=== PATIENT | male | born 1945 | race Caucasian/White ===

== ENCOUNTER 2019-11-30 07:32 | Outpatient (REF) | payer MEDICARE, SELFPAY ==
[2019-11-30 11:04] LABS: Cholesterol 168 mg/dL; HDL Cholesterol 36 mg/dL; LDL Cholesterol Calculated 99 mg/dl; Triglycerides 168 mg/dL
== END 2019-11-30 07:33 | disposition home or self-care (01) ==
LOC: HO.10HDL 07:32
PROVIDERS: PCP Internal Medicine; Visit Provider Internal Medicine
DX: I10 Essential (primary) hypertension (principal)
CPT/HCPCS: 36415; 80061

== ENCOUNTER 2020-03-17 07:37 | Outpatient (REF) | payer MEDICARE, SELFPAY ==
[2020-03-17 10:40] LABS: Anion Gap 14 (12-20); Blood Urea Nitrogen 20 mg/dL (9-16); Carbon Dioxide 23 mmol/L (22-29); Chloride 108 mmol/L (96-108); Cholesterol 181 mg/dL; Estimated Glomerular Filt Rate > 60; Glucose Fasting 106 mg/dL (60-99); HDL Cholesterol 52 mg/dL; LDL Cholesterol Calculated 100 mg/dl; Potassium 4.6 mmol/l (3.3-5.1); Sodium 140 mmol/L (135-145); Triglycerides 146 mg/dL
== END 2020-03-17 07:38 | disposition home or self-care (01) ==
LOC: HO.10HDL 07:37
PROVIDERS: Absent Provider Internal Medicine Hypertension Specialist; Visit Provider Internal Medicine
DX: E78.5 Hyperlipidemia, unspecified (principal); C64.9 Malignant neoplasm of unspecified kidney, except renal pelvis; Z90.5 Acquired absence of kidney; I10 Essential (primary) hypertension
CPT/HCPCS: 36415; 80048; 80061

== ENCOUNTER 2020-04-03 06:33 | Outpatient (REF) | payer MEDICARE, SELFPAY | END 2020-04-03 06:34 | disposition home or self-care (01) | LOC: HO.LAB 06:33 | PROVIDERS: PCP Internal Medicine; Visit Provider Internal Medicine | DX: Z20.822 Contact with and (suspected) exposure to COVID-19 (principal) | CPT/HCPCS: 36415; C9803; U0003 ==

== ENCOUNTER → 2020-04-03 10:30 | Outpatient (REF) | payer MEDICARE, SELFPAY ==
--- NOTE | 2020-04-03 10:30 | CA_ITS ---
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 The visually estimated ejection fraction is between 60-65%. - No obvious valvular pathology seen on this study. Findings Procedure Information Contrast agent, definity, is being given per protocol without apparent complications. Left Ventricle Normal left ventricular cavity size. There is mildly increased left ventricular wall thickness. The left ventricular systolic function is normal. The visually estimated ejection fraction is between 60-65%. There is no evidence of regional wall motion abnormalities. E/E prime ratio is between 8 and 15 consistent with indeterminate filling pressures. Evidence suggests grade I (mild) diastolic dysfunction. Right Ventricle Normal right ventricular cavity size and systolic function. Atria Both atria are normal in size. Aortic Valve There is a normal trileaflet aortic valve. There is no aortic valve stenosis. There is trace (trivial) aortic valve regurgitation. Mitral Valve The mitral valve appears normal. There is no mitral valve regurgitation. There is no mitral valve stenosis. Pulmonic Valve The pulmonic valve was not well visualized. Tricuspid Valve Normal tricuspid valve structure. There is trace tricuspid valve regurgitation. The pulmonary artery systolic pressure is normal. Great Vessels The asc aorta is normal in size. Venous The inferior vena cava is normal in size and collapses greater than 50% with inspiration. Pericardium/Pleural There is no evidence of pericardial effusion. Prior Study Comparison No significant change compared to prior study dated: 02/11/2016. Recommendations, Care & Conclusions No obvious valvular pathology seen on this study. Measurements M-Mode Liner Measurements Normals - Women/Men AOV Cusps: 2.40 1.5-2.6 cm/m2 2D Linear Measurements IVSd: 1.15 0.6-0.9/0.6-1.0 cm LVIDd: 4.54 3.9-5.3/4.2-5.9 cm LVIDd Index: 1.98 2.4-3.2/2.2-3.1 cm/m2 LVIDs: 3.06 2.0-3.6 cm LVPWd: 1.15 0.7-1.1 cm Ao Root: 3.60 2.1-3.5 cm LA Diam: 4.60 2.7-3.8/3.0-4.0 cm LAIDs Index: 2.01 1.5-2.3 cm/m2 LV Mass: 235.49 67-162/88-224 g LV Mass Index: 102.84 43-95/49-115 g/m2 LVOT Diam: 2.40 3.0+(-)1.3 cm Mitral Valve MV Pk E: 0.88 MV PK A: 0.73 MV Decel Time: 222.00 E/A: 1.20 E'Lateral: 6.42 E'Medial: 6.20 E/E' Med: 14.20 E/E' Lat: 13.80 PHT: 65.00 MVA PHT: 3.38 Decel Faulkner: 3.98 Aortic Valve AoV Pk Tom: 1.32 AoV Pk Grad: 7.00 LVOT LVOT Pk Tom: 1.03 LVOT Mn Tom: 0.69 LVOT VTI: 0.25 LVOT Pk Grad: 4.00 LVOT Mn Grad: 2.00 LVOT Diam: 2.40 LVOT Area: 4.52 Diastolic Function MV Pk E: 0.88 MV Pk A: 0.73 E/A: 1.20 E'Medial: 6.20 E/E' Med: 14.20 E' Laterial: 6.42 E/E' Lat: 13.80 Tricuspid Valve TR Pk Tom: 2.78 TR Pk Grad: 31.00 RA Press: 3.00 RVSP: 34.00 Great Vessels Aorta Ao Root-2D: 3.60 2.0-3.7 cm Ao Asc: 3.40 2.1-3.4 cm Pulmonary Valve PV Pk Tom: 1.15 Peak PV Grad: 5.00 Updated in Other Vendor System with Status of Final Manuel Henderson MD electronically signed on 04/05/2020 1:24:45 PM with status of Final
== END ==
LOC: HO.CARD 10:30
PROVIDERS: PCP Internal Medicine; Visit Provider Internal Medicine
DX: I25.10 Atherosclerotic heart disease of native coronary artery without angina pectoris (principal); Z95.1 Presence of aortocoronary bypass graft; Z20.822 Contact with and (suspected) exposure to COVID-19
CPT/HCPCS: 36415; 93306; C9803; Q9957; U0003

== ENCOUNTER → 2020-05-05 07:50 | Outpatient (BNVA) | payer MEDICARE, SELFPAY | PROVIDERS: PCP Internal Medicine; Visit Provider Internal Medicine | DX: I25.10 Atherosclerotic heart disease of native coronary artery without angina pectoris (principal); I10 Essential (primary) hypertension; Z95.1 Presence of aortocoronary bypass graft | CPT/HCPCS: 93005; 99212 ==

== ENCOUNTER 2020-09-30 07:36 | Outpatient (REF) | payer MEDICARE, SELFPAY ==
[2020-09-30 10:19] LABS: MANUAL DIFF FLAG NO
[2020-09-30 10:43] LABS: Basophils Percent Auto 0.5 % (0-2); Eosinophils Absolute Auto 0.2 X10*3/uL (0.0-0.4); Eosinophils Percent Auto 2.3 % (0-4); Hematocrit 45.6 % (42-52); Hemoglobin 15.2 g/dl (14.0-18.0); Imm Gran Abs Auto 0.01 X10*3/uL (0.00-0.03); Imm Gran Pct Auto 0.2 % (0.0-0.4); Lymphocytes Absolute Auto 1.9 X10*3/uL (1.2-4.9); Lymphocytes Percent Auto 29.8 % (20-40); Mean Corpuscular HGB Conc 33.3 g/dl (31.0-36.0); Mean Corpuscular Volume 89.9 fL (80-98); Mean Platelet Volume 10.7 fL (9.4-12.4); Monocytes Absolute Auto 0.5 X10*3/uL (0.1-1.2); Monocytes Percent Auto 7.5 % (2-11); Neutrophils Absolute Auto 3.8 X10*3/uL (2.0-8.3); Neutrophils Percent Auto 59.7 % (45-73); Platelet Count 240 X10*3/uL (160-400); Red Blood Count 5.07 X10*6/uL (4.60-5.80); Red Cell Distribution Width 11.9 % (11.0-16.0); White Blood Count 6.4 X10*3/uL (4.8-10.8)
[2020-09-30 10:45] LABS: Albumin Level 4.8 g/dL (3.5-5.0); Anion Gap 15 (12-20); Blood Urea Nitrogen 17 mg/dL (9-16); Calcium 9.4 mg/dL (8.4-10.2); Carbon Dioxide 22 mmol/L (22-29); Chloride 109 mmol/L (96-108); Estimated Glomerular Filt Rate > 60; Magnesium 2.1 mg/dL (1.6-2.6); Phosphorus 3.3 mg/dL (2.7-4.5); Potassium 4.8 mmol/L (3.3-5.1); Sodium 141 mmol/L (135-145)
[2020-09-30 11:15] LABS: Creatinine Urine 135.97 mg/dL; Total Protein Urine Random 27 mg/dL (<12)
[2020-10-03 13:31] LABS: Calcium (PTHI) 9.6 mg/dL (8.6-10.3); PTHI 89 pg/mL (14-64)
== END 2020-09-30 07:37 | disposition home or self-care (01) ==
LOC: HO.10HDL 07:36
PROVIDERS: Visit Provider Internal Medicine Hypertension Specialist
DX: N18.30 Chronic kidney disease, stage 3 unspecified (principal)
CPT/HCPCS: 36415; 80051; 82040; 82310; 82565; 83735; 83970; 84100; 84156; 84520; 85025

== ENCOUNTER 2020-10-04 11:37 | Emergency (ER) | payer MEDICARE, SELFPAY ==
[2020-10-04 11:47] VITALS: BP 141/70; PULSE 97; RESP 16; TEMP 36.8; O2SAT 98; BMI 30.7
--- NOTE | 2020-10-04 12:51 | ED.SKABFB ---
HPI - Skin/Abscess/Foreign Bdy General Chief complaint: Skin/Abscess/Foreign Body Stated complaint: Abcess Time Seen by Provider: 10/04/20 12:25 Source: patient Mode of arrival: ambulatory Limitations: no limitations History of Present Illness HPI narrative: 74 y/o male presenting with redness around newly diagnosed warts on his left buttock. He reports recently having a prostate exam and was noted to have a wart lesion on his left buttock. He was told to come to the hospital if it got worse or red. He denies any pain to the area and has been evaluating it with a mirror. He noticed today that there is redness spreading a few inches surrounding the wart. It is not tender. He has no fever, chills. No difficulty passing his bowels. No rectal involvement. He is not diabetic. MD complaint: rash Onset (ago): day(s) Location: buttocks Severity: mild Exacerbating factors: none Associated symptoms: denies other symptoms Treatments prior to arrival: none Related Data Home Medications Medication Instructions Recorded Confirmed finasteride 5 mg tablet 5 mg PO DAILY 12/05/19 08/26/20 nifedipine 60 mg tablet,extended 60 mg PO DAILY 12/05/19 08/26/20 release triamcinolone acetonide 0.1 % applic TOPICAL 12/05/19 08/26/20 topical cream aspirin 81 mg tablet,delayed 81 mg PO DAILY 05/05/20 08/26/20 release tamsulosin 0.4 mg capsule 0.4 mg PO DAILY 08/26/20 08/26/20 Previous Rx's Medication Instructions Recorded rosuvastatin 40 mg tablet (Crestor) 40 mg PO DAILY #90 tab 05/05/20 metoprolol tartrate 50 mg tablet 50 mg PO BID #180 tab 08/11/20 furosemide 20 mg tablet 10 mg PO QAM #30 tab 08/26/20 cephalexin 500 mg capsule 500 mg PO Q6H 7 Days #28 cap 10/04/20 Allergies Allergy/AdvReac Type Severity Reaction Status Date / Time atorvastatin [From LIPITOR] Allergy Intermediate RASH Verified 08/26/20 08:48 Review of Systems Constitutional: Constitutional: Denies body ache(s), Denies chills and Denies fever(s) Cardiovascular: Cardiovascular: Denies chest pain and Denies dyspnea Respiratory: Respiratory: Denies dyspnea Gastrointestinal: Gastrointestinal: Denies abdominal pain, Denies constipation, Denies diarrhea, Denies nausea and Denies vomiting Genitourinary: Genitourinary: Denies scrotal swelling, Denies testicular mass and Denies testicular pain Musculoskeletal: Musculoskeletal: Denies back pain and Denies myalgias Integumentary/Breasts: Skin/Breast: Reports erythema Psychiatric: Psychiatric: Reports anxiety Hematologic/Lymphatic: Hematologic/Lymphatic: Denies easy bleeding and Denies easy bruising Allergic/Immunologic: Allergic/Immunologic: Denies urticaria PMFSH Past Medical History Attestation statement: The following information was validated with the patient. Medical History Atherosclerotic cardiovascular disease Essential hypertension History of basal cell carcinoma of skin Surgical History History of bilateral carpal tunnel release History of coronary artery bypass graft History of left nephrectomy History of right inguinal hernia repair Family History Family History (Updated 08/26/20 @ 08:50 by GALO Pretty) Father No problems noted. Mother No problems noted. Social History Social History Housing: House Alcohol intake: current Patient Tobacco Use Status: Never used Tobacco Second Hand Smoke Exposure: No Advance Directives: Yes Advance Directives Information Provided: No Advance Directives on File: No service: No Current occupational status: retired Physical Exam Vital Signs: Vital Signs: Last Vital Signs Temp 98.2 F 10/04/20 11:47 Pulse 97 10/04/20 11:47 Resp 16 10/04/20 11:47 BP 141/70 H 10/04/20 11:47 Pulse Ox 98 10/04/20 11:47 Body Mass Index 30.7 Const: General: cooperative, healthy appearing and comfortable Nutritional Appearance: average body habitus Limitations: no limitations HENMT: Head: Yes normal to inspection Ears: hearing grossly normal bilaterally General nose exam: Normal external nose present Face and sinus: Yes normal facial exam Mouth: Normal oral and palatal mucosa present Eyes: General: appearance normal, both eyes and all related structures Neck: Neck: Yes normal visual inspection Chest: Chest palpation & inspection: normal inspection of the chest Resp: Effort & Inspection: normal respiratory effort and able to speak in complete sentences GI: Inspection: Yes normal to inspection Palpation (GI): Soft to palpation and nontender Rectal Exam - Male: Yes visual inspection normal Skin: General skin exam: erythema (left lower buttocks, 5 cm surrounding small wart like lesion, nontender) Course Course Course Narrative: 74 y/o male presenting with erythema surrounding wart like lesion on his buttocks. No tenderness or fluctuance to suggest abscess. Not surrounding rectum or anus. Clinical presentation is consistent with cellulitiis. No systemic signs of infection. No fevers.Stable for discharge home with trial of PO antibiotics and follow up with his PCP this week. Patient agrees with plan. Discharge Plan Discharge Clinical Impression: Cellulitis Qualifiers: Site of cellulitis: buttock Qualified Code(s): L03.317 - Cellulitis of buttock Patient Disposition: Home, Self-Care Instructions: Cellulitis (ED) Additional Instructions: Take the prescribed antibiotic as directed. Use warm compresses to the area. If you have worsening redness, pain or develop fevers come back to the ER for further evaluation. Follow up with your doctor early next week. Prescriptions: New cephalexin 500 mg capsule 500 mg PO Q6H 7 Days Qty: 28 RF: 0 No Action metoprolol tartrate 50 mg tablet 50 mg PO BID Qty: 180 RF: 8 finasteride 5 mg tablet 5 mg PO DAILY RF: 0 nifedipine 60 mg tablet extended release 60 mg PO DAILY RF: 0 triamcinolone acetonide 0.1 % cream topical RF: 0 tamsulosin 0.4 mg capsule 0.4 mg PO DAILY RF: 0 furosemide 20 mg tablet 10 mg PO QAM Qty: 30 RF: 8 aspirin 81 mg tablet,delayed release (DR/EC) 81 mg PO DAILY RF: 0 rosuvastatin [Crestor] 40 mg tablet 40 mg PO DAILY Qty: 90 RF: 4 Interventions: ED Discharge Assessment Last Done: 10/04/20 12:58 Discharge Date/Time: 10/04/20 12:58
== END 2020-10-04 12:58 | disposition home or self-care (01) ==
PROVIDERS: Emergency Provider Emergency Medicine Emergency Medical Services; PCP Internal Medicine
DX: L03.317 Cellulitis of buttock (principal); I10 Essential (primary) hypertension; Z79.899 Other long term (current) drug therapy
CPT/HCPCS: 99283

== ENCOUNTER 2021-06-01 07:33 | Outpatient (REF) | payer MEDICARE, SELFPAY ==
[2021-06-01 10:43] LABS: MANUAL DIFF FLAG NO
[2021-06-01 10:45] LABS: Basophils Absolute Auto 0.1 X10*3/uL (0.0-0.2); Basophils Percent Auto 0.8 % (0-2); Eosinophils Absolute Auto 0.2 X10*3/uL (0.0-0.4); Hematocrit 43.5 % (42.0-52.0); Hemoglobin 14.6 g/dl (14.0-18.0); Imm Gran Abs Auto 0.01 X10*3/uL (0.00-0.03); Imm Gran Pct Auto 0.1 % (0.0-0.4); Lymphocytes Percent Auto 26.9 % (20-40); Mean Corpuscular HGB Conc 33.6 g/dl (31.0-36.0); Mean Corpuscular Hemoglobin 30.9 pg (27.0-33.0); Mean Corpuscular Volume 92.2 fL (80.0-98.0); Monocytes Absolute Auto 0.5 X10*3/uL (0.1-1.2); Monocytes Percent Auto 6.3 % (2-11); Neutrophils Absolute Auto 4.6 x10*3/uL (2.0-8.3); Neutrophils Percent Auto 62.9 % (45-73); Platelet Count 237 X10*3/uL (160-400); Red Blood Count 4.72 X10*6/uL (4.60-5.80); Red Cell Distribution Width 12.4 % (11.0-16.0); White Blood Count 7.3 X10*3/uL (4.8-10.8)
[2021-06-01 11:06] LABS: Alanine Aminotransferase 26 U/L (0-40); Albumin Level 4.4 g/dL (3.5-5.0); Alkaline Phosphatase 99 U/L (39-117); Anion Gap 12 (12-20); Aspartate Amino Transferase 23 U/L (5-37); Bilirubin Direct 0.2 mg/dL (0.0-0.5); Bilirubin Total 0.5 mg/dL (0.0-1.0); Blood Urea Nitrogen 20 mg/dL (9-16); Calcium 9.4 mg/dL (8.4-10.2); Carbon Dioxide 24 mmol/L (22-29); Chloride 109 mmol/L (96-108); Cholesterol 138 mg/dL; Estimated Glomerular Filt Rate > 60; Glucose Fasting 105 mg/dL (60-99); HDL Cholesterol 53 mg/dL; LDL Cholesterol Calculated 74 mg/dl; Potassium 4.7 mmol/L (3.3-5.1); Sodium 140 mmol/L (135-145); Triglycerides 58 mg/dL
[2021-06-01 11:18] LABS: Prostate Specific Antigen Scr 2.03 ng/mL (<0.05-4.0); Thyroid Stimulating Hormone 3.11 uIU/mL (0.32-4.0)
== END 2021-06-01 07:34 | disposition home or self-care (01) ==
LOC: HO.10HDL 07:33
PROVIDERS: Internal Medicine; Visit Provider Internal Medicine Hypertension Specialist
DX: Z00.00 Encounter for general adult medical examination without abnormal findings (principal); Z13.0 Encounter for screening for diseases of the blood and blood-forming organs and certain disorders involving the immune mechanism; Z12.5 Encounter for screening for malignant neoplasm of prostate; I25.10 Atherosclerotic heart disease of native coronary artery without angina pectoris; I10 Essential (primary) hypertension
CPT/HCPCS: 36415; 80053; 80061; 80076; 82248; 84153; 84443; 85025

== ENCOUNTER → 2021-06-03 08:24 | Outpatient (BNVA) | payer MEDICARE, SELFPAY | PROVIDERS: PCP Internal Medicine; Referring Provider Internal Medicine; Visit Provider Internal Medicine | DX: I25.10 Atherosclerotic heart disease of native coronary artery without angina pectoris (principal); I10 Essential (primary) hypertension; E78.5 Hyperlipidemia, unspecified; Z95.1 Presence of aortocoronary bypass graft | CPT/HCPCS: 93005; 99212 ==

== ENCOUNTER 2022-03-13 07:49 | Emergency (ER) | payer MEDICARE, SELFPAY ==
[2022-03-13 07:51] VITALS: BP 172/78; PULSE 85; RESP 16; TEMP 35.6; O2SAT 96; BMI 30.6
--- NOTE | 2022-03-13 08:05 | ED.SKABFB ---
HPI - Skin/Abscess/Foreign Bdy General Chief complaint: Skin/Abscess/Foreign Body Stated complaint: rash Time Seen by Provider: 03/13/22 07:56 Source: patient Mode of arrival: ambulatory Limitations: no limitations History of Present Illness HPI narrative: Ten 6-year-old male with history of HTN, HLD, obesity, CAD status post CABG who presents to the ER for evaluation of 2 or 3 days of a painful, red, tender bump on his right buttock. He reports history of a similar presentation that was treated with warm compresses several years ago. He states that drained on his own last time. He has been using warm compresses to the area for the last couple of days want to get evaluated in the emergency department today. He denies any fever or chills at home. He is a year. He denies any close proximity to the rectum. He is not diabetic MD complaint: abscess/boil Onset (ago): day(s) Tetanus up to date: yes Location: buttocks Severity: moderate Severity scale (1-10): 5 Quality: aching Pain Consistency: intermittent Relieving factors: other (warm compress) Exacerbating factors: palpation Context: none Associated symptoms: denies other symptoms Treatments prior to arrival: attempted to drain pus at home Related Data Home Medications Medication Instructions Recorded Confirmed finasteride 5 mg tablet 5 mg PO DAILY 12/05/19 01/07/22 nifedipine 60 mg tablet,extended 60 mg PO DAILY 12/05/19 01/07/22 release aspirin 81 mg tablet,delayed 81 mg PO DAILY 05/05/20 01/07/22 release Previous Rx's Medication Instructions Recorded rosuvastatin 40 mg tablet (Crestor) 40 mg PO DAILY #90 tabs 06/29/21 metoprolol tartrate 50 mg tablet 50 mg PO BID #180 tabs 09/24/21 cephalexin 500 mg capsule 500 mg PO Q6H 7 days #28 caps 03/13/22 Allergies Allergy/AdvReac Type Severity Reaction Status Date / Time atorvastatin [From LIPITOR] Allergy Intermediate RASH Verified 01/07/22 12:53 Review of Systems Review of Systems: Yes all other systems are reviewed and are negative PMFSH Past Medical History Medical History History of basal cell carcinoma of skin Surgical History History of bilateral carpal tunnel release History of coronary artery bypass graft History of left nephrectomy History of right inguinal hernia repair Family History Family History Father No problems noted. Mother No problems noted. Social History Social History (Updated 08/26/21 @ 08:38 by GALO Ayala) Housing: House Alcohol intake: current Alcohol intake frequency: 0-2 drinks per day Patient Tobacco Use Status: Never used Tobacco Smoked in Last 30 Days: No e-Cigarette/Vaping Use: Never Used Second Hand Smoke Exposure: No Use of substances other than those prescribed or required for medical reasons: No Advance Directives: No Advance Directives Information Provided: Yes service: No Current occupational status: retired Cognitive needs: No Hearing needs: No Vision needs: Yes Physical Exam Vital Signs: Vital Signs: Last Vital Signs Temp 96.0 F L 03/13/22 07:51 Pulse 85 03/13/22 07:51 Resp 16 03/13/22 07:51 BP 172/78 H 03/13/22 07:51 Pulse Ox 96 03/13/22 07:51 O2 Del Method 03/13/22 07:51 BMI result Body Mass Index 30.6 Appearance: Alert. Oriented X3. No acute distress. HEENT: normal inspection CVS: Normal heart rate and rhythm. Pulses normal. Respiratory: No respiratory distress. Skin: Skin warm and dry. Normal skin color. Normal skin turgor. Right inferior buttock with a small, 1 cm area of erythema, tenderness and induration. No central fluctuance. No drainage. No extension to the perirectal area. Extremities: normal inspection x4 Neuro: Oriented X 3. Grossly normal, nonfocal, normal speech and cognition. Steady gait Course Course Course Narrative: 76-year-old male presents to the ER for evaluation of a painful, tender, red lesion on his right buttock for the last couple of days. Exam is consistent with a small infected hair follicle, no area of fluctuance to perform incision and drainage today. Will continue warm compresses. Will prescribe antibiotics. Discussed return precautions. Stable for discharge home. Medical Decision Making Differential Diagnosis Differential Diagnoses: The differential diagnosis associated with the presentation includes Abscess, cellulitis, folliculitis, herpes, perirectal abscess External Record Review External record reviewed: Office record, Outpatient record and Prior outpatient labs Tests considered The following testing was considered but not selected: labs considered - not indicated. no signs of systemic infection Prescription Management I considered prescription management with: Antibiotic Prescribed Keflex Critical Care Time Critical Care Time Critical Care Time: No Discharge Plan Discharge Clinical Impression: Abscess of skin or subcutaneous tissue Patient Disposition: Home, Self-Care Instructions: Abscess (ED) Additional Instructions: Continue to use warm compresses to the area several times per day. Take prescribed antibiotics as directed. Follow-up with primary care doctor as needed. If you develop new or worsening symptoms call 911 or come back to the ER for further evaluation. Prescriptions: New cephalexin 500 mg capsule 500 mg PO Q6H 7 Days Qty: 28 0RF No Action rosuvastatin [Crestor] 40 mg tablet 40 mg PO DAILY Qty: 90 3RF metoprolol tartrate 50 mg tablet 50 mg PO BID Qty: 180 8RF finasteride 5 mg tablet 5 mg PO DAILY nifedipine 60 mg tablet extended release 60 mg PO DAILY aspirin 81 mg tablet,delayed release (DR/EC) 81 mg PO DAILY Referrals: Margarito Solitario MD [Primary Care Provider] -
== END 2022-03-13 08:19 | disposition home or self-care (01) ==
PROVIDERS: Emergency Provider Emergency Medicine; PCP Internal Medicine
DX: L02.31 Cutaneous abscess of buttock (principal); I10 Essential (primary) hypertension; E78.5 Hyperlipidemia, unspecified; Z95.1 Presence of aortocoronary bypass graft
CPT/HCPCS: 99283; 99284

== ENCOUNTER 2022-06-09 07:47 | Outpatient (REF) | payer MEDICARE, SELFPAY ==
[2022-06-09 10:56] LABS: Anion Gap 14 (12-20); Blood Urea Nitrogen 17 mg/dL (9-16); Calcium 9.1 mg/dL (8.4-10.2); Carbon Dioxide 22 mmol/L (22-29); Chloride 110 mmol/L (96-108); Estimated Glomerular Filt Rate > 60; Glucose Random 99 mg/dL (60-115); Potassium 4.6 mmol/L (3.3-5.1); Sodium 141 mmol/L (135-145)
[2022-06-09 11:22] LABS: Creatinine Urine 82.59 mg/dL; Protein/Creatinine Ratio, Ur 0.27 (<0.2); Total Protein Urine Random 22 mg/dL (<12)
== END 2022-06-09 07:48 | disposition home or self-care (01) ==
LOC: HO.10HDL 07:47
PROVIDERS: Visit Provider Internal Medicine Hypertension Specialist
DX: I10 Essential (primary) hypertension (principal)
CPT/HCPCS: 36415; 80048; 84156

== ENCOUNTER → 2022-08-03 08:12 | Outpatient (BNVA) | payer MEDICARE, SELFPAY | PROVIDERS: PCP Internal Medicine; Referring Provider Internal Medicine; Visit Provider Internal Medicine | DX: I25.10 Atherosclerotic heart disease of native coronary artery without angina pectoris (principal); I10 Essential (primary) hypertension; E78.5 Hyperlipidemia, unspecified; Z95.1 Presence of aortocoronary bypass graft | CPT/HCPCS: 93005; 99212 ==

== ENCOUNTER 2022-09-08 08:50 | Outpatient (AMB) | payer MEDICARE, SELFPAY ==
[2022-09-08 08:56] VITALS: BMI 31.2
--- NOTE | 2022-09-08 08:56 | MHC.OFFVIS ---
Intake Vital Signs 09/08/22 08:56 Height 6 ft Weight 230 lb BMI 31.2 Intake Visit Reasons: Umbilical hernia Intake Note: This patient presents for an assessment for an umbilical hernia. Patient c/o; bulge, umbilical hernia, denies problems with bowel movements. Letter Of Credit Document Examiner Required: No Accompanied by: Self / Same As Patient Allergies atorvastatin [From LIPITOR] Allergy (Intermediate, Verified 08/19/22 09:23) RASH Medication List - Last Reconciled 09/08/22 by René Holt MD aspirin 81 mg PO DAILY finasteride 5 mg PO DAILY metoprolol tartrate 50 mg PO BID multivit with min-folic acid 120 mcg (Centrum Adult 50 Plus Fresh-Fruity) 1 tab PO DAILY nifedipine ER 60 mg PO DAILY rosuvastatin (Crestor) 40 mg PO DAILY HPI Umbilical hernia HPI Details 76-year-old male referred for an umbilical hernia. He says that he has noticed this lump on his umbilicus for about a couple of months now. He thinks that this happened after he was changing tires on his car. He denies pain although he does still bit of discomfort. He denies GI complaints. He also says that he had an [place] about 13 years ago but has been told by his insurance attorney recently that he has been doing well. [facility] Medical History Atherosclerotic cardiovascular disease Essential hypertension History of basal cell carcinoma of skin Obesity Other and unspecified hyperlipidemia Surgical History History of bilateral carpal tunnel release History of coronary artery bypass graft History of left nephrectomy History of right inguinal hernia repair Family History Father No problems noted. Mother No problems noted. Social History Housing: House Alcohol intake: current Alcohol intake frequency: 0-2 drinks per day Patient Tobacco Use Status: Never used Tobacco e-Cigarette/Vaping Use: Never Used Second Hand Smoke Exposure: No service: No Current occupational status: retired Cognitive needs: No Hearing needs: No Vision needs: Yes Review of Systems Const Denies chills and Denies fever(s) Card Denies chest pain, Denies dyspnea and Denies dyspnea on exertion Resp Denies cough, Denies dyspnea and Denies dyspnea on exertion GI Denies hematochezia and Denies change in bowel habits Denies hematuria and Denies difficulty urinating Musc Denies back pain and Denies limited range of motion Neuro Denies focal weakness and Denies convulsions Psych Denies depression and Denies mood swings Physical Exam Vital Signs: BMI result Body Mass Index 31.2 Const General: comfortable and no acute distress Orientation/consciousness: patient oriented x3 Neck Neck: Yes no lymphadenopathy Resp Auscultation: clear to auscultation bilaterally Cardio Rhythm: regular rhythm GI Other: Umbilical hernia, reducible, more prominent with Valsalva, about 2.5 cm in diameter Palpation (GI): Soft to palpation, nontender and no guarding Neuro General: patient oriented x3 Assessment & Plan Assessment & Plan (1) Umbilical hernia: Code(s): K42.9 - Umbilical hernia without obstruction or gangrene Plan: He has an umbilical hernia as described above. I described to him the technique of repair with possible mesh. I reviewed the risks including but not limited to bleeding, infections, recurrence, bowel injury, postop pain, as well as the benefits and alternatives. He understands and wants to proceed. I also explained to him what to expect postoperatively. Coding Level of Care Code New Pt Level 3 (89153) Diagnoses Umbilical hernia K42.9
== END 2022-09-08 09:18 | disposition home or self-care (01) ==
PROVIDERS: PCP Internal Medicine; Referring Provider Internal Medicine; Visit Provider Surgery
DX: K42.9 Umbilical hernia without obstruction or gangrene (principal)
CPT/HCPCS: 99203

== ENCOUNTER → 2022-09-08 08:50 | Outpatient (BNVA) | payer MEDICARE, SELFPAY | PROVIDERS: PCP Internal Medicine; Referring Provider Internal Medicine; Visit Provider Surgery | DX: K42.9 Umbilical hernia without obstruction or gangrene (principal) | CPT/HCPCS: 99202 ==

== ENCOUNTER 2022-09-18 07:02 | Emergency (ER) | payer MEDICARE, SELFPAY ==
[2022-09-18 07:14] VITALS: BP 139/74; PULSE 75; RESP 16; TEMP 36.8; O2SAT 98; BMI 33.7
--- NOTE | 2022-09-18 08:57 | ED_ITS ---
HPI - General Adult General Chief complaint: General Medical Stated complaint: back pain Time Seen by Provider: 09/18/22 07:19 Source: patient Mode of arrival: ambulatory Limitations: no limitations History of Present Illness HPI narrative: Patient is a 76-year-old male with history of hypertension, hyperlipidemia, status post CABG presenting to the emergency department with complaint of right lower back pain for 2 days. Patient states he was bringing his dog to the vet and the dog was going to the bathroom on a leash. Patient began to walk away and the dog pulled back on the leash abruptly, causing right lower back pain. Patient has been using heat packs and icy Hot as well as ibuprofen but states he is still having brief episodes of sharp stabbing pain. He denies any radiation of the pain down his legs. Denies any saddle anesthesia or bowel or bladder incontinence. Denies any fevers. Denies any difficulty with ambulating. States pain is typically worse in the morning. He denies any recent falls or other trauma. Denies any dysuria, hematuria or other urinary symptoms. MD complaint: Right lower back pain Onset (ago): day(s) Location: back Radiation: non-radiation Severity: severe Quality: stabbing and sharp Pain Consistency: intermittent Relieving factors: rest Exacerbating factors: movement Associated symptoms: denies other symptoms Treatments prior to arrival: NSAID and heat therapy Related Data Home Medications Medication Instructions Recorded Confirmed finasteride 5 mg tablet 5 mg PO DAILY 12/05/19 08/03/22 nifedipine 60 mg tablet,extended 60 mg PO DAILY 12/05/19 08/03/22 release aspirin 81 mg tablet,delayed 81 mg PO DAILY 05/05/20 08/03/22 release multivitamin with minerals-folic 1 tab PO DAILY 09/08/22 acid 120 mcg chewable tablet (Centrum Adult 50 Plus Fresh-Fruity) Previous Rx's Medication Instructions Recorded metoprolol tartrate 50 mg tablet 50 mg PO BID #180 tabs 09/24/21 rosuvastatin 40 mg tablet (Crestor) 40 mg PO DAILY #90 tabs 06/21/22 cyclobenzaprine 5 mg tablet 5 mg PO TID PRN muscle spasm #14 09/18/22 tabs lidocaine 5 % topical patch 1 patch topical DAILY #15 ea 09/18/22 Allergies Allergy/AdvReac Type Severity Reaction Status Date / Time atorvastatin [From LIPITOR] Allergy Intermediate RASH Verified 08/19/22 09:23 Review of Systems Review of Systems: As per HPI. Yes all other systems are reviewed and are negative Constitutional: Constitutional: Reports as per HPI [facility] Past Medical History Medical History Atherosclerotic cardiovascular disease Essential hypertension History of basal cell carcinoma of skin Obesity Other and unspecified hyperlipidemia Surgical History History of bilateral carpal tunnel release History of coronary artery bypass graft History of left nephrectomy History of right inguinal hernia repair Family History Family History Father No problems noted. Mother No problems noted. Social History Social History Housing: House Alcohol intake: current Alcohol intake frequency: 0-2 drinks per day Alcohol type: beer Patient Tobacco Use Status: Never used Tobacco Smoked in Last 30 Days: No e-Cigarette/Vaping Use: Never Used Second Hand Smoke Exposure: No Use of substances other than those prescribed or required for medical reasons: No Advance Directives: No Advance Directives Information Provided: No service: No Current occupational status: retired Cognitive needs: No Hearing needs: No Vision needs: Yes Physical Exam ED Vital Signs: Vital Signs - 24 hr 09/18/22 07:14 Temperature 98.3 F Pulse Rate 75 Respiratory Rate 16 Blood Pressure 139/74 Pulse Oximetry 98 Oxygen Delivery Method Room Air BMI result Body Mass Index 33.7 Vital signs have been reviewed and appear to be correct. Blood pressure normal. Heart rate normal. Respiratory rate normal. Temperature normal. Oxygen saturation normal. Const General: cooperative, healthy appearing and no acute distress Orientation/consciousness: oriented to person, oriented to place, oriented to time and patient oriented x3 Limitations: no limitations HENMT Head: Yes normocephalic and Yes atraumatic Ears: external ears normal General nose exam: Normal external nose present Face and sinus: Yes face symmetric Mouth: oropharynx normal and moist mucous membranes Throat: Yes uvula midline Eyes Pupils: Equal, round and reactive pupils present Neck Neck: Yes normal visual inspection and Yes supple Resp Effort & Inspection: normal respiratory effort and able to speak in complete sentences Auscultation: clear to auscultation bilaterally Cardio Rate: regular rate Rhythm: regular rhythm Heart sounds: S1 normal heart sound present and S2 normal heart sound present GI Palpation (GI): Soft to palpation and nontender Auscultation: normoactive bowel sounds General: Yes no CVA tenderness Back/Spine/Pelvis Back: no CVA tenderness Cervical Spine: No Cervical spine tenderness Thoracic/Lumbar Spine: thoracic and lumbar spine normal to inspection, thoraco- lumbar ROM normal, straight leg raise negative bilaterally, pain with thoraco- lumbar ROM, paraspinal muscle tenderness on the right in the mid lumbar, No thoracic spinal tenderness and No lumbar spinal tenderness Pelvis: no pain with anterior-posterior compression and no pain with lateral compression Skin General skin exam: elasticity normal and turgor normal Neuro General: oriented to person, oriented to place, oriented to time, patient oriented x3, moves all extremities, no focal motor deficits, CN's II-XI intact bilaterally and deep tendon reflexes 2+ bilaterally Cranial nerves: Yes Equal, round and reactive pupils present Cognition (Neuro): normal cognition Extrem General: Yes full ROM, Yes no pedal edema and Yes no calf tenderness Psych Mental Status: mental status grossly normal Affect: normal affect Thought process: Normal thought process present Medical Decision Making Medical Decision Making [facility] Narrative: Patient is a 76-year-old male with history of hypertension, hyperlipidemia, status post CABG presenting to the emergency department with complaint of right lower back pain for 2 days. On exam patient is awake, A+Ox3, VS WNL, afebrile, normal neurological exam without focal deficits, tenderness over right lower lumbar area, no midline tenderness, DTRs 2+ throughout, negative SLR bilaterally. Given reported symptoms and physical exam findings, fell symptoms most likely related to lumbar strain with associated muscle spasms. No red flag findings on physical exam making disc herniation, cauda equina, spinal epidural abscess, malignancy/mass, AAA, renal colic, or compression fracture unlikely. Imaging not indicated at this time as patient denies any fall or other trauma. Feel patient is stable for discharge home with a prescription for Flexeril and lidocaine patches. Advised patient to continue with ibuprofen, can alternate ice and heat, should not apply heat directly over lidocaine patches. Instructed patient to follow-up with PCP. All questions answered and patient verbalized understanding of and agreement with plan. Differential Diagnosis Differential Diagnoses: The differential diagnosis associated with the presentation includes As per MDM External Record Review External record reviewed: Inpatient record, Office record and Outpatient record Prescription Management I considered prescription management with: Pain Medication and Other (Flexeril) Chronic Conditions Patient?s care impacted by: Hypertension Discharge Plan Discharge Clinical Impression: Strain of lumbar region Patient Disposition: Home, Self-Care Instructions: Low Back Strain (ED), Acute Low Back Pain (ED), Lower Back Exercises (ED) Additional Instructions: You were evaluated in the emergency department today for back pain. Your evaluation did not show signs of medical conditions requiring emergent intervention at this time. We recommended that you use ibuprofen or Tylenol per package directions every 6 hours as needed for pain. If necessary, you can alternate these medications so that you take one medication every 3 hours. For instance, at noon take ibuprofen, then at 3:00 p.m. take Tylenol, then at 6:00 p.m. take ibuprofen. You have been prescribed a muscle relaxer which you may take every 8 hours as needed for spasms. You have been prescribed 5% topical lidocaine patches which you can wear for up to 12 hours in a 24 hour period. Do not apply heat directly over the patches. Please schedule an appointment for follow-up with your primary care physician this week for further evaluation of your symptoms. Return to the emergency department if you experience worsening back pain, difficulty walking, fevers, numbness, tingling, incontinence, groin numbness or tingling, or any other concerning symptoms. Prescriptions: New cyclobenzaprine 5 mg tablet 5 mg PO TID PRN (Reason: muscle spasm) Qty: 14 0RF lidocaine 5 % adhesive patch,medicated 1 patch topical DAILY Qty: 15 0RF Rx Instructions: leave on most painful area for up to 12 hrs No Action metoprolol tartrate 50 mg tablet 50 mg PO BID Qty: 180 8RF rosuvastatin [Crestor] 40 mg tablet 40 mg PO DAILY Qty: 90 3RF finasteride 5 mg tablet 5 mg PO DAILY nifedipine 60 mg tablet extended release 60 mg PO DAILY aspirin 81 mg tablet,delayed release (DR/EC) 81 mg PO DAILY Centrum Adult 50 Fresh-Fruity 120 mcg tablet,chewable 1 tab PO DAILY
== END 2022-09-18 09:20 | disposition home or self-care (01) ==
PROVIDERS: Emergency Provider Emergency Medicine; PCP Internal Medicine
DX: M54.9 Dorsalgia, unspecified (principal); I10 Essential (primary) hypertension; I25.10 Atherosclerotic heart disease of native coronary artery without angina pectoris; E78.5 Hyperlipidemia, unspecified; E66.9 Obesity, unspecified; Z68.33 Body mass index [BMI] 33.0-33.9, adult
CPT/HCPCS: 99283

== ENCOUNTER 2022-09-28 06:17 | Day surgery (SDC) | payer MEDICARE, SELFPAY ==
[2022-09-22 12:52] VITALS: BP 162/82; PULSE 69; RESP 20; O2SAT 97; BMI 31.2
--- NOTE | 2022-09-22 13:04 | P.CONAN_ITS ---
Documented by User: Vicki Arevalo NP 09/22/22 13:19 HPI - Anesthesia Eval Consult details Narrative: 76yo M for Hernia Repair Umbilical,with poss mesh CAD s/p CABG (~20 years ago) - stable at yearly 07/2022 cardiology visit ETOH daily: 4 beers, encouraged decreasing slowly prior to DOS No recent illness No CP/SOB with mowing the lawn PMFSH Active Problems Active Problems: All Active Problems (Updated 09/22/22 @ 12:47 by Vandana Chicas RN) Hyperlipidemia (Acute) Status post aorto-coronary artery bypass graft (Acute) Skin lesion (Acute) Cellulitis (Acute) Screening for diabetes mellitus (Acute) Screening for prostate cancer (Acute) Adult general medical exam (Acute) Hypertension (Acute) Umbilical hernia (Acute) Other and unspecified hyperlipidemia (Acute) Obesity (Acute) Essential hypertension (Acute) Atherosclerotic cardiovascular disease (Acute) Past Medical History Medical History (Updated 09/22/22 @ 12:47 by Vandana Chicas RN) Anxiety Atherosclerotic cardiovascular disease Basal cell carcinoma Essential hypertension Obesity Other and unspecified hyperlipidemia Prostate cancer Renal cancer Family History Family History Father No problems noted. Mother No problems noted. Family history of problems with anesthesia: No Surgical History Surgical History (Updated 09/22/22 @ 12:43 by Vandana Chicas RN) History of axillary surgery History of bilateral carpal tunnel release History of coronary artery bypass graft History of left nephrectomy History of meniscectomy of left knee History of right inguinal hernia repair Hx of prostate biopsy History of Problems with Anesthesia: No Social History Social History Household Members Other:: brother Housing: House Are you a primary director of healthcare systems to a significant other at home: No Do you presently have visiting nurse or other home services: No Alcohol intake: current Alcohol intake frequency: 0-2 drinks per day Alcohol type: beer Patient Tobacco Use Status: Former Tobacco user Quit Date: age 58 Tobacco use type: Cigarette Years Smoked: 40 e-Cigarette/Vaping Use: Never Used Second Hand Smoke Exposure: No service: No Current occupational status: retired Cognitive needs: No Hearing needs: No Vision needs: Yes Meds Allergies Allergy/AdvReac Type Severity Reaction Status Date / Time atorvastatin [From LIPITOR] Allergy Intermediate RASH Verified 08/19/22 09:23 Home Medications Medication Instructions Recorded Confirmed Last Taken Type finasteride 5 mg tablet 5 mg PO DAILY 12/05/19 09/22/22 Unknown History nifedipine 60 mg tablet,extended 60 mg PO DAILY 12/05/19 09/22/22 Unknown History release aspirin 81 mg tablet,delayed 81 mg PO DAILY 05/05/20 09/22/22 Unknown History release multivitamin with minerals-folic 1 tab PO DAILY 09/08/22 09/22/22 Unknown History acid 120 mcg chewable tablet (Centrum Adult 50 Plus Fresh-Fruity) Exam Exam Date and Time: September 22, 2022 1304 Pertinent Lab Results Pertinent Lab Results: Laboratory Tests 06/09/22 07:51 Sodium 141 Potassium 4.6 Chloride 110 H Carbon Dioxide 22 BUN 17 H Creatinine 1.01 Narrative Narrative: EKG 07/2022 sinus rhythm at 65/Min; borderline NE prolongation to 202 millisecond; normal corrected QT ECHO 2020 Conclusions: - The left ventricular systolic function is normal.? The visually estimated ejection fraction is between 60-65%. ? - No obvious valvular pathology seen on this study.? ?? Airway Mallampati Class: III TM Dist: >3cm Neck ROM: Full Loose/Missing/Broken Teeth: Yes (Many missing throughout, hx periodontal ds (no active ds)) Heart: RRR Lungs: CTAB Assessment and Plan Assessment Anesthesia Assessment: Anesthesia Plan Discussed and PAT Visit Final Anesthetic Review Family History of Problems with Anesthesia: No History of Problems with Anesthesia: No Documented by User: Brianne Galeana MD 09/28/22 12:46 [facility] Past Medical History Medical History (Updated 09/22/22 @ 12:47 by Vandana Chicas RN) Anxiety Atherosclerotic cardiovascular disease Basal cell carcinoma Essential hypertension Obesity Other and unspecified hyperlipidemia Prostate cancer Renal cancer Family History Family History Father No problems noted. Mother No problems noted. Surgical History Surgical History (Updated 09/22/22 @ 12:43 by Vandana Chicas RN) History of axillary surgery History of bilateral carpal tunnel release History of coronary artery bypass graft History of left nephrectomy History of meniscectomy of left knee History of right inguinal hernia repair Hx of prostate biopsy Social History Social History Household Members Other:: brother Housing: House Are you a primary director of healthcare systems to a significant other at home: No Do you presently have visiting nurse or other home services: No Alcohol intake: current Alcohol intake frequency: 0-2 drinks per day Alcohol type: beer Patient Tobacco Use Status: Former Tobacco user Quit Date: age 58 Tobacco use type: Cigarette Years Smoked: 40 e-Cigarette/Vaping Use: Never Used Second Hand Smoke Exposure: No service: No Current occupational status: retired Cognitive needs: No Hearing needs: No Vision needs: Yes Meds Allergies Allergy/AdvReac Type Severity Reaction Status Date / Time atorvastatin [From LIPITOR] Allergy Intermediate RASH Verified 08/19/22 09:23 Home Medications Medication Instructions Recorded Confirmed Last Taken Type finasteride 5 mg tablet 5 mg PO DAILY 12/05/19 09/22/22 Unknown History nifedipine 60 mg tablet,extended 60 mg PO DAILY 12/05/19 09/22/22 Unknown History release aspirin 81 mg tablet,delayed 81 mg PO DAILY 05/05/20 09/22/22 Unknown History release multivitamin with minerals-folic 1 tab PO DAILY 09/08/22 09/22/22 Unknown History acid 120 mcg chewable tablet (Centrum Adult 50 Plus Fresh-Fruity) Exam Airway Mallampati Class: II TM Dist: >3cm Loose/Missing/Broken Teeth: No Assessment and Plan Final Anesthetic Review NPO: Yes ASA Class: II and III Final Preanesthetic Review: No Changes in Pt Med Stat, Meds/Allgs Chart Reviewed, Consent Obtained/Reviewed and Anes Risks/Benef Reviewed Patient Risk: Low Procedure Risk: Low Anesthetic Plan Anesthetic Plan: GA Disposition: Standard PACU
[2022-09-28] MEDS: Lactated Ringers 1,000 ML 100 ML IVCONT (07:28)
--- NOTE | 2022-09-28 07:30 | MHC.SHP ---
Pre-Procedural Eval Section A Date of Service: 09/28/22 The patient is an INPATIENT: No Changes since office visit: Yes Cold of Flu in the past 2 weeks, Yes New Medical Problems, Yes Changes in Medication and Yes Patient answered all questions The History & Physical has been completed within 30 days and I have reviewed it.: Yes Section B Chief Complaint: Umbilical hernia without obstruction or gangrene Allergies: Allergies Allergy/AdvReac Type Severity Reaction Status Date / Time atorvastatin [From LIPITOR] Allergy Intermediate RASH Verified 08/19/22 09:23 Plan I have reviewed the history and physical and performed a pertinent physical examination on my patient. No changes have occurred unless specified. Time Spent With Patient Time: Total time managing care of this patient today ____ minutes.
--- NOTE | 2022-09-28 09:38 | P.OP_ITS ---
Operative Note Operative Note Date of Service: 09/28/22 Narrative: Preop diagnosis: Umbilical hernia Postop diagnosis: Umbilical hernia Procedure: Repair of umbilical hernia with Ventralex mesh Surgeon: René Holt MD information services assistant: CELIA Ramos Patient is a 76-year-old male, with note of a reducible mass on the umbilicus consistent with an umbilical hernia. He understood the technique of repair. He was aware of the risks, benefits, and alternatives. He was brought to the operating room. He was placed supine under general anesthesia via laryngeal mask airway. The abdomen was prepped and draped in the usual sterile fashion. A surgical time-out was done. The patient received cefazolin 2 g IV preoperatively . I infiltrated the planned line of incision. I made a curvilinear skin incision transversely on the skin using blade 15 and this carried down through the full- thickness of the skin and subcutaneous fat using electrocautery until I visualized the hernia. This hernia was fat containing. I lifted the umbilicus as a flap off of this hernia with sharp dissection. I then dissected the hernia contents not to the fascial defect. I divided thin adhesions tethering there hernia contents to the fascial edge with Metzenbaum scissors. The hernia was completely fat containing. I was able to reduce the hernia completely and dissected the underside of the fascial defect bluntly. The hernia defect was about 1.2 cm I used a small-sized Ventralex mesh and this was position underneath the hernia defect and flattened. I secured the Prolene straps of the mesh to the fascial edges using Prolene 2 sutures. I trimmed the Prolene straps and was the fascial defect with a [id number] Maxon 1 stitch. The umbilicus was tacked down with Dexon 3-0 sutures to recreate the dimple . The skin incision was closed with a running subcuticular Polysorb 4-0 stitch . The area was infiltrated with a Marcaine 0.5% for postop SANTOS. Dressings were applied and the procedure was completed. The patient tolerated procedure well. There were no immediate complications. Initial fine counts of sponges and instruments were correct. Estimated blood loss was about less than 5 cc. He was extubated without difficulty and transferred to the recovery room with stable vital signs.
[2022-09-28 10:07] VITALS: BP 135/67; PULSE 79; RESP 16; TEMP 36.1; O2SAT 92
[2022-09-28 10:10] VITALS: BP 142/70; PULSE 77; RESP 16; O2SAT 92
[2022-09-28 10:15] VITALS: BP 128/60; PULSE 74; RESP 16; O2SAT 92
[2022-09-28 10:25] VITALS: BP 134/66; PULSE 76; RESP 16; O2SAT 92
[2022-09-28 10:40] VITALS: BP 137/63; PULSE 70; RESP 17; O2SAT 93
[2022-09-28 10:55] VITALS: BP 132/62; PULSE 65; RESP 18; TEMP 36.1; O2SAT 93
== END 2022-09-28 11:22 | disposition home or self-care (01) ==
PROVIDERS: PCP Internal Medicine; Visit Provider Surgery
PROC: (CPT 49591; principal; 2022-09-28 08:40)
DX: K42.9 Umbilical hernia without obstruction or gangrene (principal); I25.10 Atherosclerotic heart disease of native coronary artery without angina pectoris; Z95.1 Presence of aortocoronary bypass graft; I25.2 Old myocardial infarction; I10 Essential (primary) hypertension; Z85.53 Personal history of malignant neoplasm of renal pelvis; Z90.5 Acquired absence of kidney; Z85.828 Personal history of other malignant neoplasm of skin; Z79.82 Long term (current) use of aspirin; Z79.899 Other long term (current) drug therapy; Z88.8 Allergy status to other drugs, medicaments and biological substances; Z87.891 Personal history of nicotine dependence
CPT/HCPCS: 49591; C1781; J0690; J2250; J2405; J3010

== ENCOUNTER → 2022-09-28 06:17 | Outpatient (BNV) | payer MEDICARE, SELFPAY | PROVIDERS: PCP Internal Medicine; Visit Provider Surgery | DX: K42.9 Umbilical hernia without obstruction or gangrene (principal) | CPT/HCPCS: 49591 ==

== ENCOUNTER 2022-10-11 08:08 | Outpatient (AMB) | payer MEDICARE, SELFPAY ==
--- NOTE | 2022-10-11 08:25 | A.OFFPC_ITS ---
Vital Signs 10/11/22 08:26 Height 5 ft 10 in Weight 229 lb BMI 32.9 BP 148/62 H Blood Pressure Location Lt brachial Position Sitting Pulse 78 Pulse Source Pulse Oximeter Pulse Oximetry (%) 97 Oxygen Delivery Method Room Air Intake Visit Reasons: 6mth f/u Allergies atorvastatin [From LIPITOR] Allergy (Intermediate, Verified 10/11/22 08:26) RASH Medication List - Last Reconciled 10/11/22 by Margarito Solitario MD aspirin 81 mg PO DAILY cyclobenzaprine 5 mg PO TID PRN finasteride 5 mg PO DAILY ibuprofen 600 mg PO Q6H PRN metoprolol tartrate 50 mg PO BID multivit with min-folic acid 120 mcg (Centrum Adult 50 Plus Fresh-Fruity) 1 tab PO DAILY nifedipine ER 60 mg PO DAILY oxycodone-acetaminophen 5-325 mg (Percocet) 1 tab PO Q4-6H PRN rosuvastatin (Crestor) 40 mg PO DAILY Tobacco use date assessed: 08/19/22 Fall risk assessment: No Falls in past year Last assessed Fall Risk: 10/11/22 Dental Screening Dental Screen Date: 10/11/22 Did you have a dental visit in the last 12 months?: No Did you have a dental problem in the last 6 months where you did not have access to dental care?: No Was dental information given to patient?: No HPI 6mth f/u HPI Details HTN hyperlipidemia and BPH; stable on rx PFSH Medical History (Updated 10/11/22 @ 08:48 by Margarito Solitario MD) Anxiety Atherosclerotic cardiovascular disease Basal cell carcinoma Essential hypertension Obesity Other and unspecified hyperlipidemia Prostate cancer Renal cancer Surgical History (Updated 10/07/22 @ 10:24 by Zelda Adams [facility]) History of axillary surgery History of bilateral carpal tunnel release History of coronary artery bypass graft History of left nephrectomy History of meniscectomy of left knee History of right inguinal hernia repair History of umbilical hernia repair (~09/28/22) Hx of prostate biopsy Family History Father No problems noted. Mother No problems noted. Social History Household Members Other:: brother Housing: House Are you a primary daytime caregiver to a significant other at home: No Do you presently have visiting nurse or other home services: No Alcohol intake: current Alcohol intake frequency: 0-2 drinks per day Alcohol type: beer Patient Tobacco Use Status: Former Tobacco user Quit Date: age 58 Tobacco use type: Cigarette Years Smoked: 40 e-Cigarette/Vaping Use: Never Used Second Hand Smoke Exposure: No service: No Current occupational status: retired Cognitive needs: No Hearing needs: No Vision needs: Yes Questionnaire PHQ-9 Over the last 2 weeks, how often have you been bothered by any of the following problems? 1. Little interest or pleasure in doing things: not at all 2. Feeling down, depressed, or hopeless: not at all 3. Trouble falling or staying asleep, or sleeping too much: not at all 4. Feeling tired or having little energy: not at all 5. Poor appetite or overeating: not at all 6. Feeling bad about yourself - or that you are a failure or have let yourself or your family down: not at all 7. Trouble concentrating on things, such as reading the newspaper or watching television: not at all 8. Moving or speaking so slowly that other people could have noticed. Or the opposite - being so fidgety or restless that you have been moving around a lot more than usual: not at all 9. Thoughts that you would be better off or of hurting yourself in some way: not at all Total score: 0 Depression Screening Interpretation: Negative 01136 - PHQ-9 Billing: Yes Source: Developed by Drs. Song Tan, Nacho Howard and colleagues, with an educational jackie from [employer]. Thrive Questionnaire Date Thrive assessed: 04/12/22 AUDIT C Alcohol Use Questionnaire (AUDIT-C) 1. How often do you have a drink containing alcohol?: 4 or more times a week 2. How many drinks containing alcohol do you have on a typical day when you are drinking?: 3 or 4 3. How often do you have six or more drinks on one occasion?: Never Total Score: 5 Score Reviewed/Action Taken: Yes KURTIS-7 AMB Questionnaire KURTIS-7 Date KURTIS - 7 assessed: 04/12/22 Source: Developed by Drs. Song Tan, Nacho Howard and colleagues, with an educational jackie from [employer]. Review of Systems Const Denies chills, Denies headache(s) and Denies weight loss ENT Denies headache(s) Card Denies chest pain, Denies syncope, Denies irregular heart rhythm and Denies dyspnea Resp Denies chest congestion, Denies cough and Denies dyspnea GI Denies abdominal pain, Denies change in stool character, Denies nausea and Denies vomiting Musc Denies deformity and Denies joint swelling Neuro Denies syncope and Denies headache(s) Physical exam (Primary Care) Vital Signs: Last Vital Signs Pulse 78 10/11/22 08:26 BP 148/62 H 10/11/22 08:26 Pulse Ox 97 10/11/22 08:26 Oxygen Delivery Method Room Air 10/11/22 08:26 BMI result Body Mass Index 32.9 Tobacco/Smoking Status: Tobacco use Status Tobacco use date assessed 08/19/22 10/11/22 08:29 Patient Tobacco Use Status Former Tobacco user 10/11/22 08:29 Tobacco use type Cigarette 10/11/22 08:29 e-Cigarette/Vaping Use Never Used 10/11/22 08:29 PHQ-9: PHQ-9 Score PHQ-9: Total score 0 10/11/22 08:29 Depression Screening Interpretation: Negative Thrive Assessment: Date of Thrive Assessment Date Thrive assessed 04/12/22 10/11/22 08:29 Const General: cooperative, comfortable and no acute distress Resp Effort & Inspection: normal respiratory effort Auscultation: clear to auscultation bilaterally Percussion: percussion normal Cardio Jugular venous distension: no JVD Rate: regular rate Rhythm: regular rhythm GI Other: 2 cm umb hernia Assessment and Plan Assessment & Plan (1) Hyperlipidemia: Code(s): E78.5 - Hyperlipidemia, unspecified Plan: stable; same rx (2) Hypertension: Code(s): I10 - Essential (primary) hypertension Plan: stable; same rx (3) Prostate cancer: Code(s): C61 - Malignant neoplasm of prostate Plan: as per urology Orders: Orders XR lumbar spine 2-3V Today M54.9 - Dorsalgia, unspecified Lipid Panel Today E78.5 - Hyperlipidemia, unspecified Coding Level of Care Code Est Pt Level 4 (26516) Diagnoses Hyperlipidemia E78.5 Hypertension I10 Prostate cancer C61
[2022-10-11 08:26] VITALS: BP 148/62; PULSE 78; O2SAT 97; BMI 32.9
== END 2022-10-11 08:47 | disposition home or self-care (01) ==
PROVIDERS: PCP Internal Medicine; Visit Provider Internal Medicine
DX: E78.5 Hyperlipidemia, unspecified (principal); I10 Essential (primary) hypertension; C61 Malignant neoplasm of prostate
CPT/HCPCS: 99214

== ENCOUNTER 2022-10-11 08:58 | Outpatient (REF) | payer MEDICARE, SELFPAY ==
--- NOTE | ~2022-10-11 | XR_ITS ---
EXAMINATION: XR LUMBOSACRAL SPINE CLINICAL INFORMATION: Back pain COMPARISON: 02/05/2009 TECHNIQUE: Three views of the lumbosacral spine. FINDINGS: Interval progression of advanced degenerative changes in the imaged lower thoracic spine with hypertrophic change. Extensive atherosclerotic aortoiliac calcifications. There is concern for possible aneurysmal dilatation of the distal abdominal aorta measuring 4.4 cm in AP dimension, difficult to characterize on this exam. CT scan of 12/16/2015 demonstrated a 2.8 cm distal abdominal aortic aneurysm. Progression of facet arthritis in the mid to lower lumbar spine. Multilevel lumbar spondylosis. Marked degenerative changes at L5-S1 lumbar spondylosis with loss of disc space height and hypertrophic change. XR/XR lumbar spine 2-3V IMPRESSION: 1. Concern for possible aneurysmal dilatation of the distal abdominal aorta measuring 4.4 cm in AP dimension, difficult to characterize on this exam. CT scan of 12/16/2015 demonstrated a 2.8 cm distal abdominal aortic aneurysm. Dedicated CT scan or ultrasound of the abdominal aorta recommend for further evaluation. 2. Multilevel lumbar spondylosis with marked degenerative changes at L5-S1. Additional imaging with CT scan or MRI should be considered for better visualization as these modalities are much more sensitive for detection of fracture or other underlying pathology. This study was presented today 10/12/2022 at 10:10 AM for interpretation. PSA staff will provide results to referring provider at this time.
== END 2022-10-11 08:59 | disposition home or self-care (01) ==
LOC: HO.XRAY 08:58
PROVIDERS: Absent Provider Internal Medicine; PCP Internal Medicine; Visit Provider Surgery
DX: M54.9 Dorsalgia, unspecified (principal); K42.9 Umbilical hernia without obstruction or gangrene
CPT/HCPCS: 72100

== ENCOUNTER 2022-10-11 08:58 | Outpatient (AMB) | payer MEDICARE, SELFPAY ==
[2022-10-11 09:11] VITALS: BMI 33.0
--- NOTE | 2022-10-11 09:11 | A.OFFVIS_ITS ---
Intake Vital Signs 10/11/22 09:11 Height 5 ft 10 in Weight 230 lb BMI 33.0 Intake Visit Reasons: S/P umbilical hernia Intake Note: This patient presents for a post-op assessment status post umbilical hernia repair. Patient c/o; reports rash, reports leakage and redness on the surgical site. Medical Radiation Tech Required: No Accompanied by: Self / Same As Patient Allergies atorvastatin [From LIPITOR] Allergy (Intermediate, Verified 10/11/22 09:20) RASH Medication List - Last Reconciled 10/11/22 by René Holt MD aspirin 81 mg PO DAILY cyclobenzaprine 5 mg PO TID PRN finasteride 5 mg PO DAILY ibuprofen 600 mg PO Q6H PRN metoprolol tartrate 50 mg PO BID multivit with min-folic acid 120 mcg (Centrum Adult 50 Plus Fresh-Fruity) 1 tab PO DAILY nifedipine ER 60 mg PO DAILY oxycodone-acetaminophen 5-325 mg (Percocet) 1 tab PO Q4-6H PRN rosuvastatin (Crestor) 40 mg PO DAILY sildenafil 50 mg PO HPI S/P umbilical hernia HPI Details He underwent repair of an umbilical hernia with Ventralex mesh last 09/28/2022. He tolerated procedure well. Her currently denies significant complaints except for some drainage from the site. [facility] Medical History Anxiety Atherosclerotic cardiovascular disease Basal cell carcinoma Essential hypertension Obesity Other and unspecified hyperlipidemia Prostate cancer Renal cancer Surgical History History of axillary surgery History of bilateral carpal tunnel release History of coronary artery bypass graft History of left nephrectomy History of meniscectomy of left knee History of right inguinal hernia repair History of umbilical hernia repair (~09/28/22) Hx of prostate biopsy Family History Father No problems noted. Mother No problems noted. Social History Household Members Other:: brother Housing: House Are you a primary manager intensive care to a significant other at home: No Do you presently have visiting nurse or other home services: No Alcohol intake: current Alcohol intake frequency: 0-2 drinks per day Alcohol type: beer Patient Tobacco Use Status: Former Tobacco user Quit Date: age 58 Tobacco use type: Cigarette Years Smoked: 40 e-Cigarette/Vaping Use: Never Used Second Hand Smoke Exposure: No service: No Current occupational status: retired Cognitive needs: No Hearing needs: No Vision needs: Yes Review of Systems Const Denies chills and Denies fever(s) Card Denies chest pain, Denies dyspnea and Denies dyspnea on exertion Resp Denies cough, Denies dyspnea and Denies dyspnea on exertion GI Denies hematochezia and Denies change in bowel habits Denies hematuria and Denies difficulty urinating Musc Denies back pain and Denies limited range of motion Neuro Denies focal weakness and Denies convulsions Psych Denies depression and Denies mood swings Physical Exam Vital Signs: BMI result Body Mass Index 33.0 Const General: comfortable and no acute distress Resp Effort & Inspection: normal respiratory effort GI Other: Soft, repair site on the umbilicus is healing well, with some skin irritation likely from some discharge otherwise no pus, repair intact Assessment & Plan Assessment & Plan (1) Umbilical hernia: Code(s): K42.9 - Umbilical hernia without obstruction or gangrene Plan: Status post repair with mesh. The repair site is intact. There was note of some skin irritation likely due to some discharge although there is no pus at this time. I have clean the area with a moist gauze. I instructed him on good wound hygiene. I will see him again in another month for a wound check. Coding Level of Care Code Global (40553) Diagnoses Umbilical hernia K42.9
== END 2022-10-11 09:38 | disposition home or self-care (01) ==
PROVIDERS: PCP Internal Medicine; Visit Provider Surgery
DX: K42.9 Umbilical hernia without obstruction or gangrene (principal)
CPT/HCPCS: 99024

== ENCOUNTER 2022-10-15 11:07 | Outpatient (REF) | payer MEDICARE, SELFPAY ==
--- NOTE | ~2022-10-15 | CT_ITS ---
EXAMINATION: CT ANGIOGRAM ABDOMEN CLINICAL INFORMATION: Abdominal aortic aneurysm without rupture. COMPARISON: 12/16/2015 TECHNIQUE: Multiple axial images were obtained through the abdomen following the administration of 80 mL Omnipaque 350 intravenous contrast. Images were reviewed on a dedicated 3-D workstation. This CT examination was performed using dose optimization techniques as appropriate, variously including the following: *Automated exposure control *Adjustment of mA and/or kV according to patient size (this includes techniques or standardized protocols for targeted exams where dose is matched to indication/reason for exam; i.e. extremities or head) *Use of iterative reconstruction technique DLP: 223 mGy-cm FINDINGS: VASCULAR: 1. Mesenteric arteries: Unremarkable. 2. Renal arteries: Unremarkable appearance of the right renal artery. Status post left nephrectomy. 3. Abdominal aorta: Mild fusiform aneurysmal dilation measuring approximately 3.4 x 3.2 cm in diameter. In November 2015 this measured approximately 3.2 x 3.1 cm, by my measurements. No evidence of dissection or hemodynamically significant stenosis. 4. Right iliofemoral system: No evidence of hemodynamically significant stenosis. 5. Left iliofemoral system: No evidence of hemodynamically significant stenosis. NONVASCULAR ABDOMEN/PELVIS: Lung Bases: Liver, Gallbladder, Biliary Tree: Question fatty infiltration of the liver. The liver appears unremarkable in size and shape. No focal hepatic lesion or biliary ductal dilatation is appreciated. Unremarkable appearance of the gallbladder. Pancreas: Unremarkable. Spleen: Unremarkable. Adrenal Glands: Unremarkable. Kidneys and Ureters: Status post left nephrectomy, new compared with November 2015. Approximately 1 cm benign right lower pole simple renal cyst. The right kidney otherwise appears unremarkable in size, shape, and attenuation. No hydronephrosis or hydroureter or calculi seen. Gastrointestinal Tract: Colonic diverticulosis without evidence of diverticulitis. Normal-appearing appearing distal ileum and vermiform appendix. Abdominal Wall: No hernia is appreciated. Lymph Nodes: No evidence of adenopathy by size criteria. Osseous Structures: Unremarkable. CT/CT angio abdomen IMPRESSION: Mild fusiform aneurysmal dilation measuring approximately 3.4 x 3.2 cm in diameter. In November 2015 this measured approximately 3.2 x 3.1 cm, by my measurements. Follow up imaging in approximately 3 years is recommended, if clinically indicated. Additional findings, as above.
[2022-10-15 12:37] LABS: Cholesterol 144 mg/dL; HDL Cholesterol 60 mg/dL; LDL Cholesterol Calculated 69 mg/dl; Triglycerides 79 mg/dL
[2022-10-18 09:48] LABS: Creatinine POC 0.5 mg/dL (0.5-1.4); GFR POC > 60
== END 2022-10-15 11:08 | disposition home or self-care (01) ==
LOC: HO.CT 11:07
PROVIDERS: PCP Internal Medicine; Visit Provider Internal Medicine
DX: I71.40 Abdominal aortic aneurysm, without rupture, unspecified (principal); E78.5 Hyperlipidemia, unspecified
CPT/HCPCS: 36415; 74175; 80061; 82565

== ENCOUNTER 2022-10-22 10:52 | Outpatient (AMB) | payer MEDICARE, SELFPAY ==
--- NOTE | 2022-10-22 11:01 | MHC.PC.OV ---
Vital Signs 10/22/22 11:02 Height 5 ft 11 in Weight 232 lb 4 oz BMI 32.4 BP 120/64 Blood Pressure Location Lt brachial Position Sitting Pulse 82 Pulse Source Pulse Oximeter Pulse Oximetry (%) 96 Oxygen Delivery Method Room Air Intake Visit Reasons: AAA Intake Note: Patient is here today for CT scan results Facilities Manager Required: No Associate Broker: Present Accompanied by: Spouse Allergies atorvastatin [From LIPITOR] Allergy (Intermediate, Verified 10/22/22 11:02) RASH Medication List - Last Reconciled 10/22/22 by Margarito Solitario MD aspirin 81 mg PO DAILY cyclobenzaprine 5 mg PO TID PRN finasteride 5 mg PO DAILY ibuprofen 600 mg PO Q6H PRN metoprolol tartrate 50 mg PO BID multivit with min-folic acid 120 mcg (Centrum Adult 50 Plus Fresh-Fruity) 1 tab PO DAILY nifedipine ER 60 mg PO DAILY rosuvastatin (Crestor) 40 mg PO DAILY sildenafil 50 mg PO Tobacco use date assessed: 10/22/22 Fall risk assessment: No Falls in past year Last assessed Fall Risk: 10/22/22 Dental Screening Dental Screen Date: 10/22/22 Did you have a dental visit in the last 12 months?: No Did you have a dental problem in the last 6 months where you did not have access to dental care?: No Was dental information given to patient?: No HPI AAA HPI Details discussed his AAA; 3.4 cm; will obseve in onw year PFSH Medical History Anxiety Atherosclerotic cardiovascular disease Basal cell carcinoma Essential hypertension Obesity Other and unspecified hyperlipidemia Prostate cancer Renal cancer Surgical History History of axillary surgery History of bilateral carpal tunnel release History of coronary artery bypass graft History of left nephrectomy History of meniscectomy of left knee History of right inguinal hernia repair History of umbilical hernia repair (~09/28/22) Hx of prostate biopsy Family History Father No problems noted. Mother No problems noted. Social History Household Members Other:: brother Housing: House Are you a primary hemodialysis patient care specialist to a significant other at home: No Do you presently have visiting nurse or other home services: No Alcohol intake: current Alcohol intake frequency: 0-2 drinks per day Alcohol type: beer Patient Tobacco Use Status: Former Tobacco user Quit Date: age 58 Tobacco use type: Cigarette Years Smoked: 40 e-Cigarette/Vaping Use: Never Used Second Hand Smoke Exposure: No service: No Current occupational status: retired Cognitive needs: No Hearing needs: No Vision needs: Yes (glasses) Questionnaire PHQ-9 Over the last 2 weeks, how often have you been bothered by any of the following problems? Depression Screening Interpretation: Negative Source: Developed by Drs. Song Tan, Thania Rivers, Nacho Aguirre and colleagues, with an educational jackie from [employer]. Thrive Questionnaire Date Thrive assessed: 04/12/22 KURTIS-7 AMB Questionnaire KURTIS-7 Date KURTIS - 7 assessed: 04/12/22 Source: Developed by Drs. Song Tna, Thania Rivers, Nacho Aguirre and colleagues, with an educational jackie from [employer]. Review of Systems Const Denies chills, Denies headache(s) and Denies weight loss ENT Denies headache(s) Card Denies chest pain, Denies syncope, Denies irregular heart rhythm and Denies dyspnea Resp Denies chest congestion, Denies cough and Denies dyspnea GI Denies abdominal pain, Denies change in stool character, Denies nausea and Denies vomiting Musc Denies deformity and Denies joint swelling Neuro Denies syncope and Denies headache(s) Physical exam (Primary Care) Vital Signs: Last Vital Signs Pulse 82 10/22/22 11:02 BP 120/64 10/22/22 11:02 Pulse Ox 96 10/22/22 11:02 Oxygen Delivery Method Room Air 10/22/22 11:02 BMI result Body Mass Index 32.4 Tobacco/Smoking Status: Tobacco use Status Tobacco use date assessed 10/22/22 10/22/22 11:06 Patient Tobacco Use Status Former Tobacco user 10/22/22 11:06 Tobacco use type Cigarette 10/22/22 11:06 e-Cigarette/Vaping Use Never Used 10/22/22 11:06 Depression Screening Interpretation: Negative Thrive Assessment: Date of Thrive Assessment Date Thrive assessed 04/12/22 10/22/22 11:06 Const General: cooperative, comfortable and no acute distress Resp Effort & Inspection: normal respiratory effort Auscultation: clear to auscultation bilaterally Percussion: percussion normal Cardio Jugular venous distension: no JVD Rate: regular rate Rhythm: regular rhythm GI Other: 2 cm umb hernia Assessment and Plan Assessment & Plan (1) AAA (abdominal aortic aneurysm): Code(s): I71.40 - Abdominal aortic aneurysm, without rupture, unspecified Plan: monitor Orders: Orders PT Evaluation and Treatment Today M54.9 - Dorsalgia, unspecified Medications: New hydrochlorothiazide 12.5 mg PO QAM 90 tabs 3RF Coding Level of Care Code Est Pt Level 3 (62974) Diagnoses AAA (abdominal aortic aneurysm) I71.40
[2022-10-22 11:02] VITALS: BP 120/64; PULSE 82; O2SAT 96; BMI 32.4
== END 2022-10-22 11:22 | disposition home or self-care (01) ==
PROVIDERS: PCP Internal Medicine; Visit Provider Internal Medicine
DX: I71.40 Abdominal aortic aneurysm, without rupture, unspecified (principal)
CPT/HCPCS: 99213

== ENCOUNTER 2022-11-09 07:14 | Emergency (ER) | payer MEDICARE, SELFPAY ==
--- NOTE | ~2022-11-09 | XR_ITS ---
EXAMINATION: XR CHEST CLINICAL INFORMATION: Covid positive, shortness of breath and cough COMPARISON: None available. TECHNIQUE: 2 views of the chest were obtained. FINDINGS: Median sternotomy wires and surgical clips. Heart, mediastinum, pulmonary vessels and lung collins within normal limits. Mild kyphosis. XR/XR chest 2V IMPRESSION: No acute cardiopulmonary disease.
[2022-11-09 07:43] VITALS: BP 128/64; PULSE 92; RESP 16; TEMP 36.9; O2SAT 96; BMI 30.2
--- NOTE | 2022-11-09 07:57 | ED_ITS ---
HPI - General Adult General Chief complaint: Upper Respiratory Symptoms Stated complaint: Uncontrolled blood pressure covid+ 11/03 Time Seen by Provider: 11/09/22 07:46 Source: patient Mode of arrival: ambulatory Limitations: no limitations History of Present Illness HPI narrative: 76-year-old male with history of CAD status post CABG, HTN, AAA, HLD, prostate cancer, obesity who presents to the ER for evaluation of elevated blood pressure and concerns for pneumonia. He states he tested positive for COVID on 11/03. he has had a productive cough and is worried about COVID pneumonia. He has been taking his BP frequently at home and it has been ranging 100-140s/70-80s. He is worried about the fluctuations and states he has been lightheaded. He admits to poor PO intake at home. The cough is keeping him up at night and his chest feels congested. Unable to bring up phlegm. No known fevers at home but today he had sweats and chills. NBo chest pain. He is fully vaccinated and boosted, never had COVD before. MD complaint: cough Onset (ago): day(s) Location: chest Radiation: non-radiation Severity: moderate Quality: aching Pain Consistency: intermittent Relieving factors: rest Exacerbating factors: other (coughing) Associated symptoms: cough, fever/chills, headaches, loss of appetite and malaise Treatments prior to arrival: none Related Data Home Medications Medication Instructions Recorded Confirmed finasteride 5 mg tablet 5 mg PO DAILY 12/05/19 10/22/22 nifedipine 60 mg tablet,extended 60 mg PO DAILY 12/05/19 10/22/22 release aspirin 81 mg tablet,delayed 81 mg PO DAILY 05/05/20 10/22/22 release multivitamin with minerals-folic 1 tab PO DAILY 09/08/22 10/22/22 acid 120 mcg chewable tablet (Centrum Adult 50 Plus Fresh-Fruity) sildenafil 50 mg tablet 50 mg PO 10/11/22 10/22/22 Previous Rx's Medication Instructions Recorded metoprolol tartrate 50 mg tablet 50 mg PO BID #180 tabs 09/24/21 rosuvastatin 40 mg tablet (Crestor) 40 mg PO DAILY #90 tabs 06/21/22 cyclobenzaprine 5 mg tablet 5 mg PO TID PRN muscle spasm #14 09/18/22 tabs clotrimazole-betamethasone 1 1 appl topical BID 4 weeks #15 10/22/22 %-0.05 % topical cream grams hydrochlorothiazide 12.5 mg tablet 12.5 mg PO QAM #90 tabs 10/22/22 ibuprofen 600 mg tablet 600 mg PO Q6H PRN pain #30 tabs 10/22/22 benzonatate 100 mg capsule 100 mg PO TID PRN cough #30 caps 11/09/22 hydrocodone-homatropine 5 mg-1.5 5 ml PO Q4-6H PRN cough #60 mL 11/09/22 mg/5 mL (5 mL) oral syrup (Hycodan) Allergies Allergy/AdvReac Type Severity Reaction Status Date / Time atorvastatin [From LIPITOR] Allergy Intermediate RASH Verified 10/22/22 11:02 Review of Systems Review of Systems: Yes all other systems are reviewed and are negative [facility] Past Medical History Medical History Anxiety Atherosclerotic cardiovascular disease Basal cell carcinoma Essential hypertension Obesity Other and unspecified hyperlipidemia Prostate cancer Renal cancer Surgical History History of axillary surgery History of bilateral carpal tunnel release History of coronary artery bypass graft History of left nephrectomy History of meniscectomy of left knee History of right inguinal hernia repair History of umbilical hernia repair (~09/28/22) Hx of prostate biopsy Family History Family History Father No problems noted. Mother No problems noted. Social History Social History Household Members Other:: brother Housing: House Are you a primary healthcare network consultant to a significant other at home: No Do you presently have visiting nurse or other home services: No Alcohol intake: current Alcohol intake frequency: 3 or more drinks per day Alcohol type: beer Patient Tobacco Use Status: Former Tobacco user Quit Date: age 58 Tobacco use type: Cigarette Years Smoked: 40 Smoked in Last 30 Days: No e-Cigarette/Vaping Use: Never Used Second Hand Smoke Exposure: No Use of substances other than those prescribed or required for medical reasons: No Advance Directives: Yes Advance Directives Information Provided: Yes Advance Directives on File: No service: No Current occupational status: retired Cognitive needs: No Hearing needs: No Vision needs: Yes (glasses) Physical Exam ED Vital Signs: Vital Signs - 24 hr 11/09/22 07:43 11/09/22 08:00 Temperature 98.4 F Pulse Rate 92 Respiratory Rate 16 16 Blood Pressure 128/64 Pulse Oximetry 96 Oxygen Delivery Method Room Air BMI result Body Mass Index 30.2 Appearance: Alert. Oriented X3. No acute distress. Head: normocephalic, atraumatic. Eyes: Pupils equal, round and reactive to light. ENT: Pharynx normal. No tonsillar swelling or exudate. Neck: Normal inspection. Neck supple. CVS: Normal heart rate and rhythm. Pulses normal. Respiratory: No respiratory distress. Breath sounds normal. Abdomen: Soft and nontender. +BS x4 Skin: Skin warm and dry. Normal skin color. Normal skin turgor. No rashes. Extremities: No lower extremity edema. No joint swelling. No calf tenderness Neuro/psych: Oriented X 3. No motor deficit. No sensory deficit. CN II-XII intact. Normal speech and cognition. Medical Decision Making Medical Decision Making MDM Narrative: 76-year-old male presenting to the ER for evaluation of productive cough and fluctuating blood pressures at home. He has had poor p.o. intake and lightheadedness. His vital signs are stable on arrival today. He has had no chest pain or difficulty breathing. He appears well on examination with clear lungs. He is saturating well. Blood pressure today is normal. Chest x-ray without PNA. at this time patient is stable for discharge home. Does not require antiviral treatment as diagnosis was several days ago. Will prescribe antitussive agents. Return precautions were discussed. Comfortable discharge home Differential Diagnosis Differential Diagnoses: The differential diagnosis associated with the presentation includes COVID-19, COVID pneumonia, bacterial pneumonia, atypical pneumonia, bronchitis. No evidence of hypertensive urgency Independent Interpretation I performed an independent interpretation of an: Plain X-Ray Interpretation: no evidence of COVID pneumonia, no focal infiltrate Radiology Impression Discussion of test interpretation with radiology: I have reviewed the radiologist's reading. Radiologist Impression: EXAMINATION: XR CHEST CLINICAL INFORMATION: Covid positive, shortness of breath and cough COMPARISON: None available. TECHNIQUE: 2 views of the chest were obtained. FINDINGS: Median sternotomy wires and surgical clips. Heart, mediastinum, pulmonary vessels and lung collins within normal limits. Mild kyphosis. XR/XR chest 2V IMPRESSION: No acute cardiopulmonary disease. External Record Review External record reviewed: Prior outpatient labs Prescription Management I considered prescription management with: Antiviral Chronic Conditions Patient?s care impacted by: Hypertension Critical Care Time Critical Care Time Critical Care Time: No Discharge Plan Discharge Clinical Impression: COVID-19 Patient Disposition: Home, Self-Care Instructions: Covid-19 Viral Syndrome and Novel Coronavirus (ED) Hey/Ath Additional Instructions: You were found to be COVID-19 POSITIVE today. Your chest x-ray and oxygen levels were normal. Rest. Drink plenty of fluids. Do not go out in public while you are not feeling well Take over the counter cold/flu medications as needed for your symptoms. Take Tylenol and/or Motrin as needed for fevers and body aches. Follow up with your doctor this week. If you develop new or worsening symptoms call 911 or come back to the ER for further evaluation. Prescriptions: New hydrocodone-homatropine [Hycodan] 5-1.5 mg/5 mL (5 mL) syrup 5 ml PO Q4-6H PRN (Reason: cough) Qty: 60 0RF Rx Instructions: Partial Fill upon patient request. benzonatate 100 mg capsule 100 mg PO TID PRN (Reason: cough) Qty: 30 0RF No Action metoprolol tartrate 50 mg tablet 50 mg PO BID Qty: 180 8RF rosuvastatin [Crestor] 40 mg tablet 40 mg PO DAILY Qty: 90 3RF clotrimazole-betamethasone 1-0.05 % cream 1 appl topical BID 28 Days Qty: 15 2RF cyclobenzaprine 5 mg tablet 5 mg PO TID PRN (Reason: muscle spasm) Qty: 14 0RF finasteride 5 mg tablet 5 mg PO DAILY nifedipine 60 mg tablet extended release 60 mg PO DAILY hydrochlorothiazide 12.5 mg tablet 12.5 mg PO QAM Qty: 90 3RF ibuprofen 600 mg tablet 600 mg PO Q6H PRN (Reason: pain) Qty: 30 0RF aspirin 81 mg tablet,delayed release (DR/EC) 81 mg PO DAILY Centrum Adult 50 Fresh-Fruity 120 mcg tablet,chewable 1 tab PO DAILY sildenafil 50 mg tablet 50 mg PO Interventions: ED Discharge Assessment Last Done: 11/09/22 09:47 Discharge Date/Time: 11/09/22 09:48
[2022-11-09 08:00] VITALS: RESP 16
== END 2022-11-09 09:48 | disposition home or self-care (01) ==
PROVIDERS: Emergency Provider Emergency Medicine; PCP Internal Medicine
DX: U07.1 COVID-19 (principal); I10 Essential (primary) hypertension; R05.9 Cough, unspecified; R42 Dizziness and giddiness; Z79.899 Other long term (current) drug therapy
CPT/HCPCS: 71046; 99283; 99284

== ENCOUNTER 2022-11-30 08:00 | Outpatient (RCR) | payer MEDICARE, SELFPAY ==
--- NOTE | 2022-11-16 09:49 | MHC.PT.EP ---
[facility] [place] [facility] [place] [facility] [place] [facility] [address] Karri Wren [address] [phone] F: [phone] F: [phone] F: [phone] F: [phone] Physical Therapy Plan of Care Date of Evaluation: 11/16/22 Date of Surgery: N/A Diagnosis: dorsalgia (RL) Assessment: pt is a 76 y/o male presenting to physical therapy w/ referring diagnosis of dorsalgia. Impairments include pain, decreased range of motion, decreased strength, impaired functional mobility, impaired postural awareness, and altered ambulation mechanics. pt is a good candidate for skilled PT due to age, potential remediation of impairments, typical disease/condition progression and prognosis, comorbidities, and motivation. pt would benefit from skilled PT intervention to provide a tailored strengthening and stretching exercise program, functional training, gait training, postural re-training, neuromuscular re-education, modalities as needed for pain, equipment safety demonstration. Frequency and Duration: The patient will be seen 1x/wk for 2 wks Short Term Goals: pt will be I w/ HEP to promote self-management of condition. pt will demo proper sitting posture w/ lumbar roll to promote neutral spine w/ seated ADLs. Longterm Goals: pt will demo proper lifting mechanics w/ 25# object from floor to chest height x3 reps. Treatment Plan: Modalities to reduce pain, spasms and effusion. Manual therapy to restore motion and function. Therapeutic exercise to improve strength and flexibility. Neuromuscular re-education for posture and balance. Therapeutic activities to return to functional activities of daily living. Electronically signed by: Geeta Aguilar PT, DPT Please sign and return to therapist. Thank you for your referral.
--- NOTE | 2022-12-13 12:10 | MHC.PT.DC ---
[facility] [place] [facility] [place] [facility] [place] [facility] [address] Karri Wren [address] [phone] F: [phone] F: [phone] F: [phone] F: [phone] Physical Therapy Discharge Report Diagnosis: dorsalgia (RL) Date of Surgery: N/A Date of Evaluation: 11/16/22 Date of Discharge: 12/13/22 Treatments to Date: 2 Cancellations to Date: 1 No Shows to Date: 0 Discharge Status: Improved Function Independent with HEP Discharge Summary: The patient has only had one instance of back pain that he described as muscle spasm. He performed his stretches and pain abolished. We reviewed his program and he demonstrates good form. He would like to be discharged as he is feeling better. Electronically signed by: Geeta Aguilar PT, DPT Please sign and return to therapist. Thank you for your referral.
== END 2022-12-13 12:10 | disposition home or self-care (01) ==
LOC: HO.PT 08:00
PROVIDERS: PCP Internal Medicine; Visit Provider Internal Medicine
DX: M54.9 Dorsalgia, unspecified (principal)
CPT/HCPCS: 97110; 97162

== ENCOUNTER 2022-12-05 08:05 | Emergency (ER) | payer MEDICARE, SELFPAY ==
[2022-12-05 08:07] VITALS: BP 143/67; PULSE 83; RESP 18; TEMP 35.7; O2SAT 97; BMI 31.7
--- NOTE | 2022-12-05 08:20 | PC.NURSE ---
Patient reports noticed a rash at base of penis x 3 days ago, states rash has spread into groin. Reports his dog was started on chloramphenicol 3 days ago. Reports used glove on one hand only and may have forgotten to wash his hands after applying cream to dogs bacterial infection. denies pain at site, reports itchy but no drainage.
--- NOTE | 2022-12-05 08:24 | ED.SKABFB ---
HPI - Skin/Abscess/Foreign Bdy General Chief complaint: Skin/Abscess/Foreign Body Stated complaint: Rash Time Seen by Provider: 12/05/22 08:19 Source: patient and old records reviewed Mode of arrival: ambulatory Limitations: no limitations History of Present Illness HPI narrative: 77 yo male with PMH of cellulitis, CAD s/p CABG, AAA, prostate cancer, HTN here with c/o itchy red rash in groin area x 2 days, he tried triple antibiotic cream without relief. He has no fevers, pain, difficulty urinating, no rash anywhere else. This has never happened before. MD complaint: rash Onset (ago): day(s) (2) Tetanus up to date: yes Location: genitals Severity: mild Quality: pruritic Relieving factors: none Exacerbating factors: palpation Context: none Associated symptoms: denies other symptoms Treatments prior to arrival: antibiotic (triple antibiotic cream) Related Data Home Medications Medication Instructions Recorded Confirmed finasteride 5 mg tablet 5 mg PO DAILY 12/05/19 10/22/22 nifedipine 60 mg tablet,extended 60 mg PO DAILY 12/05/19 10/22/22 release aspirin 81 mg tablet,delayed 81 mg PO DAILY 05/05/20 10/22/22 release multivitamin with minerals-folic 1 tab PO DAILY 09/08/22 10/22/22 acid 120 mcg chewable tablet (Centrum Adult 50 Plus Fresh-Fruity) sildenafil 50 mg tablet 50 mg PO 10/11/22 10/22/22 Previous Rx's Medication Instructions Recorded metoprolol tartrate 50 mg tablet 50 mg PO BID #180 tabs 09/24/21 rosuvastatin 40 mg tablet (Crestor) 40 mg PO DAILY #90 tabs 06/21/22 cyclobenzaprine 5 mg tablet 5 mg PO TID PRN muscle spasm #14 09/18/22 tabs clotrimazole-betamethasone 1 1 appl topical BID 4 weeks #15 10/22/22 %-0.05 % topical cream grams hydrochlorothiazide 12.5 mg tablet 12.5 mg PO QAM #90 tabs 10/22/22 ibuprofen 600 mg tablet 600 mg PO Q6H PRN pain #30 tabs 10/22/22 benzonatate 100 mg capsule 100 mg PO TID PRN cough #30 caps 11/09/22 hydrocodone-homatropine 5 mg-1.5 5 ml PO Q4-6H PRN cough #60 mL 11/09/22 mg/5 mL (5 mL) oral syrup (Hycodan) clotrimazole 1 % topical cream 1 appl topical BID 2 weeks #30 12/05/22 grams Allergies Allergy/AdvReac Type Severity Reaction Status Date / Time atorvastatin [From LIPITOR] Allergy Intermediate RASH Verified 10/22/22 11:02 Review of Systems Review of Systems: Constitutional : No Fever, No Chills Cardiovascular : No Chest Pain, No SOB Respiratory : No Cough, No Sputum Gastrointestinal : No Nausea, No Vomiting, No Diarrhea, No abdominal Pain Genitourinary : No Dysuria, No Hematuria Musculoskeletal : No joint pain, No Myalgias, No Joint Swelling Skin : No Skin Lesions, positive skin rash Neuro : No Weakness, No Numbness, No Headache All other systems reviewed and are negative [facility] Past Medical History Medical History Basal cell carcinoma Renal cancer Prostate cancer Anxiety Other and unspecified hyperlipidemia Obesity Essential hypertension Atherosclerotic cardiovascular disease Surgical History History of umbilical hernia repair (~09/28/22) History of axillary surgery Hx of prostate biopsy History of meniscectomy of left knee History of right inguinal hernia repair History of left nephrectomy History of bilateral carpal tunnel release History of coronary artery bypass graft Family History Family History Father No problems noted. Mother No problems noted. Social History Social History Household Members Other:: brother Housing: House Are you a primary home care scheduler to a significant other at home: No Do you presently have visiting nurse or other home services: No Alcohol intake: current Alcohol intake frequency: 3 or more drinks per day Alcohol type: beer Patient Tobacco Use Status: Former Tobacco user Quit Date: age 58 Tobacco use type: Cigarette Years Smoked: 40 e-Cigarette/Vaping Use: Never Used Second Hand Smoke Exposure: No Advance Directives Date on File: 09/29/22 service: No Current occupational status: retired Cognitive needs: No Hearing needs: No Vision needs: Yes (glasses) Physical Exam Vital Signs: Vital Signs: Last Vital Signs Temp 96.2 F L 12/05/22 08:07 Pulse 83 12/05/22 08:07 Resp 18 12/05/22 08:07 BP 143/67 H 12/05/22 08:07 Pulse Ox 97 12/05/22 08:07 O2 Del Method Room Air 12/05/22 08:07 BMI result Body Mass Index 31.7 Appearance: Alert. Oriented X3. No acute distress. Eyes: Pupils equal, round and reactive to light. ENT: Pharynx normal. Neck: Normal inspection. Neck supple. CVS: Pulses normal. Respiratory: No respiratory distress. Abdomen: Soft and nontender. Groin: small patches of red satellite lesions on both groin areas and right above the shaft of penis on mons no warmth, edema no confluence no vesicles, underneath lesions there is small flat pink area. Skin: Skin warm and dry. Normal skin color. Extremities: normal ROM Neuro: Oriented X 3. No motor deficit. No sensory deficit. Medical Decision Making Medical Decision Making MDM Narrative: 77 yo male with PMH of cellulitis, CAD s/p CABG, AAA, prostate cancer, HTN here with rash on groin area not consistent with cellulitis or pamela's - at this time appears to be jock itch. Will start on clotrimazole and refer to PCP and send home with precautions. Differential Diagnosis Differential Diagnoses: The differential diagnosis associated with the presentation includes jock itch, dermatitis Admission/Observation Consideration of admission/observation: Escalation of care including admission/observation considered no systemic symptoms no involvement can be managed as outpatient External Record Review External record reviewed: Inpatient record Tests considered The following testing was considered but not selected: UA but no urinary symptoms not indicated Prescription Management I considered prescription management with: Other (topical antifungal) Discharge Plan Discharge Clinical Impression: Jock itch Patient Disposition: Home, Self-Care Instructions: Jock Itch (ED) Additional Instructions: return for worsening redness, fevers, swelling, inability to urinate, start cream today. do not use other creams. wear clean cotton underwear. Prescriptions: New clotrimazole 1 % cream 1 appl topical BID 14 Days Qty: 30 0RF No Action metoprolol tartrate 50 mg tablet 50 mg PO BID Qty: 180 8RF rosuvastatin [Crestor] 40 mg tablet 40 mg PO DAILY Qty: 90 3RF clotrimazole-betamethasone 1-0.05 % cream 1 appl topical BID 28 Days Qty: 15 2RF cyclobenzaprine 5 mg tablet 5 mg PO TID PRN (Reason: muscle spasm) Qty: 14 0RF hydrocodone-homatropine [Hycodan] 5-1.5 mg/5 mL (5 mL) syrup 5 ml PO Q4-6H PRN (Reason: cough) Qty: 60 0RF Rx Instructions: Partial Fill upon patient request. benzonatate 100 mg capsule 100 mg PO TID PRN (Reason: cough) Qty: 30 0RF finasteride 5 mg tablet 5 mg PO DAILY nifedipine 60 mg tablet extended release 60 mg PO DAILY hydrochlorothiazide 12.5 mg tablet 12.5 mg PO QAM Qty: 90 3RF ibuprofen 600 mg tablet 600 mg PO Q6H PRN (Reason: pain) Qty: 30 0RF aspirin 81 mg tablet,delayed release (DR/EC) 81 mg PO DAILY Centrum Adult 50 Fresh-Fruity 120 mcg tablet,chewable 1 tab PO DAILY sildenafil 50 mg tablet 50 mg PO
== END 2022-12-05 08:48 | disposition home or self-care (01) ==
PROVIDERS: Emergency Provider Emergency Medicine; PCP Internal Medicine
DX: B35.6 Tinea cruris (principal); I25.10 Atherosclerotic heart disease of native coronary artery without angina pectoris; Z79.899 Other long term (current) drug therapy
CPT/HCPCS: 99283; 99284

== ENCOUNTER 2022-12-16 09:10 | Outpatient (AMB) | payer MEDICARE, SELFPAY ==
[2022-12-16 10:43] VITALS: BP 158/90; PULSE 62; TEMP 36.7; O2SAT 98; BMI 31.6
--- NOTE | 2022-12-16 10:43 | AM.OFFWIN_ITS ---
Intake Vital Signs 12/16/22 10:43 Height 6 ft Weight 105.687 kg BMI 31.6 BP 158/90 H Blood Pressure Location Rt brachial Position Sitting Pulse 62 Pulse Source Pulse Oximeter Temp 98.0 F Temp Source Temporal Artery Scan Pulse Oximetry (%) 98 Intake Visit Reasons: Ep, Rash on groin (salinas magdaadama kristofer) Intake Note: pt is here for c/o rash on groin, was in ED on 12/05 was given clomatrizale cream was diagnosed with jock itch but it hasnt helped per patient Patient Tobacco Use Status: Former Tobacco user Quit Date: age 58 Allergies atorvastatin [From LIPITOR] Allergy (Intermediate, Verified 12/16/22 10:43) RASH Do you need a note to return to daycare/school/sports/work: Yes HPI HPI Comments History of Present Illness Details 1049 77 yo male with PMH of cellulitis, CAD s /p CABG, AAA, prostate cancer, HTN here with c/o itchy red rash in groin area x11 days has tried triple antibiotic oint ment little to no relief, has also tried clotrimazole cream is little to no help. Physical exam significant for small patches & ulcerated lesions on both groin areas and right above the shaft of penis on on mons w/ slight errythema. No edema, drainage, lessions. Differentials include jock itch, dermatitis, cellulitis vs herpes. Unlikely fouriners or gangrene. Plan- valtrex, doxy. will prophylactically treat for herpes as lesions are not going away and they are painful and itchy. Educated patient on diagnosis and treatment plan, answered all question, patient verbalizes understanding. At this time patient will be discharged home, advised to return with new or worsening symptoms. Educated on worrisome signs and symptoms and when to return. At this time I feel comfortable discharge home. [facility] Medical History Basal cell carcinoma Renal cancer Prostate cancer Anxiety Other and unspecified hyperlipidemia Obesity Essential hypertension Atherosclerotic cardiovascular disease Surgical History History of umbilical hernia repair (~09/28/22) History of axillary surgery Hx of prostate biopsy History of meniscectomy of left knee History of right inguinal hernia repair History of left nephrectomy History of bilateral carpal tunnel release History of coronary artery bypass graft Family History Father No problems noted. Mother No problems noted. Social History Household Members Other:: brother Housing: House Are you a primary patient care director to a significant other at home: No Do you presently have visiting nurse or other home services: No Alcohol intake: current Alcohol intake frequency: 3 or more drinks per day Alcohol type: beer Patient Tobacco Use Status: Former Tobacco user Quit Date: age 58 Tobacco use type: Cigarette Years Smoked: 40 e-Cigarette/Vaping Use: Never Used Second Hand Smoke Exposure: No Advance Directives Date on File: 09/29/22 service: No Current occupational status: retired Cognitive needs: No Hearing needs: No Vision needs: Yes (glasses) Review of Systems Const Details: Constitutional : No Weight loss, No Fever, No Chills, No Fatigue, No Malaise ENT/Mouth : No sore throat, No Rhinorrhea Eyes: No Eye Pain, No Swelling, No Redness Cardiovascular : No Chest Pain, No SOB, No Dyspnea on Exertion, No Orthopnea, No Edema, No Palpitations Respiratory : No Cough, No Sputum, No Wheezing Gastrointestinal : No Nausea, No Vomiting, No Diarrhea, No Constipation, No abdominal Pain, No Hematochezia, No Melena Genitourinary : No Dysuria, No Urinary Frequency, No Hematuria, Musculoskeletal : No joint pain, No Myalgias, No Joint Swelling Skin : No Skin Lesions, + rash Neuro : No Weakness, No Numbness, No Dizziness, No Headache Psych : No Anxiety/Panic, No Depression All other systems reviewed and are negative All systems reviewed & are unremarkable except as noted in HPI and below Physical Exam Vital Signs: Last Vital Signs Temp 98.0 F 12/16/22 10:43 Pulse 62 12/16/22 10:43 BP 158/90 H 12/16/22 10:43 Pulse Ox 98 12/16/22 10:43 BMI result Body Mass Index 31.6 vss Appearance: Alert.? Oriented X3.? No acute distress.? Head: Normocephalic, atraumatic, no step-offs or deformities Eyes: Pupils equal, round and reactive to light.? Neck: Normal inspection.? Neck supple.? CVS: Normal heart rate and rhythm.? Pulses normal.? Respiratory: No respiratory distress.? Breath sounds normal.? Abdomen: Soft and nontender.? Skin: Skin warm and dry.? Normal skin color.? Normal skin turgor.?+ small patches & ulcerated lesions on both groin areas and right above the shaft of penis on on mons w/ slight errythema. No edema, drainage, lessions. Extremities: No lower extremity edema.? No calf ttp. 5/5 strength to bilateral upper and lower extremities Neuro: Oriented X 3.? No motor deficit.? No sensory deficit. CN 2-12 intact Assessment & Plan Assessment & Plan (1) Lesion of penis: Code(s): N48.9 - Disorder of penis, unspecified Plan Take your medications as prescribed. If you were prescribed antibiotics today, it is important that you take your medication to their entirety, do not skip any doses, do not finish them early. Follow-up with your primary care provider this week. Return to the emergency department with new or worsening symptoms. Such as fevers, chills, chest pain, shortness of breath, nausea, vomiting, dizziness, headache, vision changes, lethargy In case of emergency call 911 Medications: New valacyclovir (Valtrex) 1,000 mg PO TID 21 tabs 0RF 7 days doxycycline hyclate 100 mg PO BID 14 caps 0RF 7 days Coding Level of Care Code Est Pt Level 3 (00107) Diagnoses Lesion of penis N48.9
== END 2022-12-16 11:18 | disposition home or self-care (01) ==
PROVIDERS: PCP Internal Medicine; Visit Provider Physician Assistant
DX: N48.9 Disorder of penis, unspecified (principal)
CPT/HCPCS: 99213

== ENCOUNTER 2022-12-22 10:51 | Outpatient (AMB) | payer MEDICARE, SELFPAY ==
[2022-12-22 10:54] VITALS: BP 144/62; PULSE 91; O2SAT 98; BMI 30.9
--- NOTE | 2022-12-22 10:54 | A.OFFPC_ITS ---
Vital Signs 12/22/22 10:54 Height 6 ft Weight 228 lb BMI 30.9 BP 144/62 H Blood Pressure Location Lt brachial Position Sitting Pulse 91 Pulse Source Pulse Oximeter Pulse Oximetry (%) 98 Oxygen Delivery Method Room Air Intake Visit Reasons: c for rash on legs 12/05 Allergies atorvastatin [From LIPITOR] Allergy (Intermediate, Verified 12/22/22 10:54) RASH Medication List - Last Reconciled 12/22/22 by Margarito Solitario MD aspirin 81 mg PO DAILY benzonatate 100 mg PO TID PRN clotrimazole 1% 1 appl topical BID 2 weeks clotrimazole-betamethasone 1-0.05 % 1 appl topical BID 2 weeks clotrimazole-betamethasone 1-0.05 % 1 appl topical BID 4 weeks cyclobenzaprine 5 mg PO TID PRN doxycycline hyclate 100 mg PO BID 7 days finasteride 5 mg PO DAILY hydrochlorothiazide 12.5 mg PO QAM ibuprofen 600 mg PO Q6H PRN metoprolol tartrate 50 mg PO BID multivit with min-folic acid 120 mcg (Centrum Adult 50 Plus Fresh-Fruity) 1 tab PO DAILY nifedipine ER 60 mg PO DAILY rosuvastatin (Crestor) 40 mg PO DAILY sildenafil 50 mg PO valacyclovir (Valtrex) 1,000 mg PO TID 7 days Tobacco use date assessed: 10/22/22 Fall risk assessment: No Falls in past year Last assessed Fall Risk: 12/22/22 Dental Screening Dental Screen Date: 12/22/22 Did you have a dental visit in the last 12 months?: No Did you have a dental problem in the last 6 months where you did not have access to dental care?: No Was dental information given to patient?: Patient has dentist HPI [facility] for rash on legs 12/05 HPI Details pruritic groin rash for a week PFSH Medical History Basal cell carcinoma Renal cancer Prostate cancer Anxiety Other and unspecified hyperlipidemia Obesity Essential hypertension Atherosclerotic cardiovascular disease Surgical History History of umbilical hernia repair (~09/28/22) History of axillary surgery Hx of prostate biopsy History of meniscectomy of left knee History of right inguinal hernia repair History of left nephrectomy History of bilateral carpal tunnel release History of coronary artery bypass graft Family History Father No problems noted. Mother No problems noted. Social History Household Members Other:: brother Housing: House Are you a primary physician primary care sports medicine to a significant other at home: No Do you presently have visiting nurse or other home services: No Alcohol intake: current Alcohol intake frequency: 3 or more drinks per day Alcohol type: beer Patient Tobacco Use Status: Former Tobacco user Quit Date: age 58 Tobacco use type: Cigarette Years Smoked: 40 e-Cigarette/Vaping Use: Never Used Second Hand Smoke Exposure: No Advance Directives Date on File: 09/29/22 service: No Current occupational status: retired Cognitive needs: No Hearing needs: No Vision needs: Yes (glasses) Questionnaire PHQ-9 Over the last 2 weeks, how often have you been bothered by any of the following problems? 1. Little interest or pleasure in doing things: not at all 2. Feeling down, depressed, or hopeless: not at all 3. Trouble falling or staying asleep, or sleeping too much: not at all 4. Feeling tired or having little energy: not at all 5. Poor appetite or overeating: not at all 6. Feeling bad about yourself - or that you are a failure or have let yourself or your family down: not at all 7. Trouble concentrating on things, such as reading the newspaper or watching television: not at all 8. Moving or speaking so slowly that other people could have noticed. Or the opposite - being so fidgety or restless that you have been moving around a lot more than usual: not at all 9. Thoughts that you would be better off or of hurting yourself in some way: not at all Total score: 0 Depression Screening Interpretation: Negative Depression Screening Done: Yes Source: Developed by Drs. Song Tan, Thania Rivers, Nacho Aguirre and colleagues, with an educational jakcie from [employer]. Thrive Questionnaire Date Thrive assessed: 04/12/22 AUDIT C Alcohol Use Questionnaire (AUDIT-C) 1. How often do you have a drink containing alcohol?: 4 or more times a week 2. How many drinks containing alcohol do you have on a typical day when you are drinking?: 3 or 4 3. How often do you have six or more drinks on one occasion?: Never Total Score: 5 Score Reviewed/Action Taken: Yes KURTIS-7 AMB Questionnaire KURTIS-7 Date KURTIS - 7 assessed: 04/12/22 Source: Developed by Drs. Song Tan, Thania Rivers, Nacho Aguirre and colleagues, with an educational jackie from [employer]. Review of Systems Const Denies chills, Denies headache(s) and Denies weight loss ENT Denies headache(s) Card Denies chest pain, Denies syncope, Denies irregular heart rhythm and Denies dyspnea Resp Denies chest congestion, Denies cough and Denies dyspnea GI Denies abdominal pain, Denies change in stool character, Denies nausea and Denies vomiting Musc Denies deformity and Denies joint swelling Neuro Denies syncope and Denies headache(s) Physical exam (Primary Care) Vital Signs: Last Vital Signs Pulse 91 12/22/22 10:54 BP 144/62 H 12/22/22 10:54 Pulse Ox 98 12/22/22 10:54 Oxygen Delivery Method Room Air 12/22/22 10:54 BMI result Body Mass Index 30.9 Tobacco/Smoking Status: Tobacco use Status Tobacco use date assessed 10/22/22 12/22/22 10:59 Patient Tobacco Use Status Former Tobacco user 12/22/22 10:59 Tobacco use type Cigarette 12/22/22 10:59 e-Cigarette/Vaping Use Never Used 12/22/22 10:59 PHQ-9: PHQ-9 Score PHQ-9: Total score 0 12/22/22 10:59 Depression Screening Interpretation: Negative Thrive Assessment: Date of Thrive Assessment Date Thrive assessed 04/12/22 12/22/22 10:59 Const General: cooperative, comfortable, no acute distress and alert Neck Neck: Yes no lymphadenopathy Thyroid: Thyroid normal Resp Effort & Inspection: normal respiratory effort Auscultation: clear to auscultation bilaterally Percussion: percussion normal Cardio Jugular venous distension: no JVD Palpation: normal PMI Rate: regular rate Rhythm: regular rhythm Heart sounds: S1 normal heart sound present and S2 normal heart sound present GI Inspection: Yes normal to inspection Palpation (GI): No hepatosplenomegaly present Skin Other: tinea cruris Extrem General: Yes no clubbing, cyanosis or edema Assessment and Plan Assessment & Plan (1) Tinea cruris: Code(s): B35.6 - Tinea cruris Plan: rx sent Medications: New clotrimazole-betamethasone 1-0.05 % 1 appl topical BID 45 grams 2RF 2 weeks Coding Level of Care Code Est Pt Level 3 (98194) Diagnoses Tinea cruris B35.6
== END 2022-12-22 11:35 | disposition home or self-care (01) ==
PROVIDERS: PCP Internal Medicine; Visit Provider Internal Medicine
DX: B35.6 Tinea cruris (principal)
CPT/HCPCS: 99213

== ENCOUNTER 2023-01-17 08:15 | Outpatient (AMB) | payer MEDICARE, SELFPAY ==
--- NOTE | 2023-01-17 08:32 | A.OFFPC_ITS ---
Vital Signs 01/17/23 08:34 Height 6 ft Weight 225 lb 2 oz BMI 30.5 BP 110/72 Blood Pressure Location Lt brachial Position Sitting Pulse 80 Pulse Source Pulse Oximeter Pulse Oximetry (%) 95 Oxygen Delivery Method Room Air Intake Visit Reasons: 3mth f/u Intake Note: Patient is here to follow up on AAA,, Hyperlipidemia, HTN. 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 Sodium Chlorite Operator: Not Required per policy Accompanied by: Self / Same As Patient Allergies atorvastatin [From LIPITOR] Allergy (Intermediate, Verified 01/17/23 08:34) RASH Medication List - Last Reconciled 01/17/23 by Margarito Solitario MD aspirin 81 mg PO DAILY benzonatate 100 mg PO TID PRN clotrimazole 1% 1 appl topical BID 2 weeks clotrimazole-betamethasone 1-0.05 % 1 appl topical BID 2 weeks clotrimazole-betamethasone 1-0.05 % 1 appl topical BID 4 weeks cyclobenzaprine 5 mg PO TID PRN finasteride 5 mg PO DAILY hydrochlorothiazide 12.5 mg PO QAM ibuprofen 600 mg PO Q6H PRN metoprolol tartrate 50 mg PO BID multivit with min-folic acid 120 mcg (Centrum Adult 50 Plus Fresh-Fruity) 1 tab PO DAILY nifedipine ER 60 mg PO DAILY rosuvastatin (Crestor) 40 mg PO DAILY sildenafil 50 mg PO valacyclovir (Valtrex) 1,000 mg PO TID 7 days Tobacco use date assessed: 01/17/23 HPI 3mth f/u HPI Details HTN prostate cancer and hyperlipidemia; stable and compliant on rx PFSH Medical History Basal cell carcinoma Renal cancer Prostate cancer Anxiety Other and unspecified hyperlipidemia Obesity Essential hypertension Atherosclerotic cardiovascular disease Surgical History History of umbilical hernia repair (~09/28/22) History of axillary surgery Hx of prostate biopsy History of meniscectomy of left knee History of right inguinal hernia repair History of left nephrectomy History of bilateral carpal tunnel release History of coronary artery bypass graft Family History Father No problems noted. Mother No problems noted. Social History Household Members Other:: brother Housing: House Are you a primary wound care center consultant to a significant other at home: No Do you presently have visiting nurse or other home services: No Alcohol intake: current Alcohol intake frequency: 3 or more drinks per day Alcohol type: beer Patient Tobacco Use Status: Former Tobacco user Quit Date: age 58 Tobacco use type: Cigarette Years Smoked: 40 e-Cigarette/Vaping Use: Never Used Second Hand Smoke Exposure: No Advance Directives Date on File: 09/29/22 service: No Current occupational status: retired Cognitive needs: No Hearing needs: No Vision needs: Yes (glasses) Questionnaire Thrive Questionnaire Date Thrive assessed: 04/12/22 KURTIS-7 AMB Questionnaire KURTIS-7 Date KURTIS - 7 assessed: 04/12/22 Source: Developed by Drs. Song Tan, Thania Rivers, Nacho Aguirre and colleagues, with an educational jackie from [employer]. Review of Systems Const Denies chills, Denies headache(s) and Denies weight loss ENT Denies headache(s) Card Denies chest pain, Denies syncope, Denies irregular heart rhythm and Denies dyspnea Resp Denies chest congestion, Denies cough and Denies dyspnea GI Denies abdominal pain, Denies change in stool character, Denies nausea and Denies vomiting Musc Denies deformity and Denies joint swelling Neuro Denies syncope and Denies headache(s) Physical exam (Primary Care) Vital Signs: Last Vital Signs Pulse 80 01/17/23 08:34 BP 110/72 01/17/23 08:34 Pulse Ox 95 01/17/23 08:34 Oxygen Delivery Method Room Air 01/17/23 08:34 BMI result Body Mass Index 30.5 Tobacco/Smoking Status: Tobacco use Status Tobacco use date assessed 01/17/23 01/17/23 08:38 Patient Tobacco Use Status Former Tobacco user 01/17/23 08:38 Tobacco use type Cigarette 01/17/23 08:38 e-Cigarette/Vaping Use Never Used 01/17/23 08:38 Thrive Assessment: Date of Thrive Assessment Date Thrive assessed 04/12/22 01/17/23 08:38 Const General: cooperative, comfortable, no acute distress and alert Neck Neck: Yes no lymphadenopathy Thyroid: Thyroid normal Resp Effort & Inspection: normal respiratory effort Auscultation: clear to auscultation bilaterally Percussion: percussion normal Cardio Jugular venous distension: no JVD Palpation: normal PMI Rate: regular rate Rhythm: regular rhythm Heart sounds: S1 normal heart sound present and S2 normal heart sound present GI Inspection: Yes normal to inspection Palpation (GI): No hepatosplenomegaly present Skin General skin exam: no rashes or lesions noted Extrem General: Yes no clubbing, cyanosis or edema Assessment and Plan Assessment & Plan (1) Prostate cancer: Code(s): C61 - Malignant neoplasm of prostate Plan: stable; as per urology (2) Hyperlipidemia: Code(s): E78.5 - Hyperlipidemia, unspecified Plan: stable; same rx (3) Hypertension: Code(s): I10 - Essential (primary) hypertension Plan: stable; same rx Orders: Orders Lipid Panel Today E78.5 - Hyperlipidemia, unspecified Complete Blood Count Auto Diff Today D64.9 - Anemia, unspecified Comprehensive [place]. Panel Fast Today N28.9 - Disorder of kidney and ureter, unspecified Coding Level of Care Code Est Pt Level 4 (47143) Diagnoses Prostate cancer C61 Hyperlipidemia E78.5 Hypertension I10
[2023-01-17 08:34] VITALS: BP 110/72; PULSE 80; O2SAT 95; BMI 30.5
== END 2023-01-17 08:49 | disposition home or self-care (01) ==
PROVIDERS: PCP Internal Medicine; Visit Provider Internal Medicine
DX: E78.5 Hyperlipidemia, unspecified (principal); C61 Malignant neoplasm of prostate; I10 Essential (primary) hypertension
CPT/HCPCS: 99214

== ENCOUNTER 2023-06-01 07:17 | Outpatient (REF) | payer MEDICARE, SELFPAY ==
[2023-06-01 09:20] LABS: Anion Gap 14 (12-20); Blood Urea Nitrogen 21 mg/dL (9-16); Calcium 9.3 mg/dL (8.4-10.2); Carbon Dioxide 25 mmol/L (22-29); Chloride 105 mmol/L (96-108); Estimated Glomerular Filt Rate > 60; Potassium 3.9 mmol/L (3.3-5.1); Sodium 140 mmol/L (135-145)
== END 2023-06-01 07:18 | disposition home or self-care (01) ==
LOC: HO.LAB 07:17
PROVIDERS: PCP Internal Medicine; Visit Provider Internal Medicine Hypertension Specialist
DX: N18.2 Chronic kidney disease, stage 2 (mild) (principal)
CPT/HCPCS: 36415; 80051; 82310; 82565; 84520

== ENCOUNTER 2023-07-14 07:26 | Outpatient (REF) | payer MEDICARE, SELFPAY ==
[2023-07-14 10:52] LABS: MANUAL DIFF FLAG NO
[2023-07-14 11:12] LABS: Basophils Absolute Auto 0.1 X10*3/uL (0.0-0.2); Basophils Percent Auto 0.9 % (0-2); Eosinophils Absolute Auto 0.2 X10*3/uL (0.0-0.4); Eosinophils Percent Auto 3.4 % (0-4); Hematocrit 44.1 % (42.0-52.0); Hemoglobin 15.4 g/dl (14.0-18.0); Imm Gran Abs Auto 0.01 X10*3/uL (0.00-0.03); Imm Gran Pct Auto 0.2 % (0.0-0.4); Lymphocytes Absolute Auto 1.6 X10*3/uL (1.2-4.9); Lymphocytes Percent Auto 28.8 % (20-40); Mean Corpuscular HGB Conc 34.9 g/dl (31.0-36.0); Mean Corpuscular Hemoglobin 31.8 pg (27.0-33.0); Mean Corpuscular Volume 91.1 fL (80.0-98.0); Mean Platelet Volume 10.9 fL (9.4-12.4); Monocytes Absolute Auto 0.5 X10*3/uL (0.1-1.2); Monocytes Percent Auto 8.2 % (2-11); Neutrophils Absolute Auto 3.2 x10*3/uL (2.0-8.3); Neutrophils Percent Auto 58.5 % (45-73); Platelet Count 238 X10*3/uL (160-400); Red Blood Count 4.84 X10*6/uL (4.60-5.80); Red Cell Distribution Width 12.2 % (11.0-16.0); White Blood Count 5.5 X10*3/uL (4.8-10.8)
[2023-07-14 11:40] LABS: Alanine Aminotransferase 24 U/L (0-40); Albumin Level 4.4 g/dL (3.5-5.0); Alkaline Phosphatase 107 U/L (39-117); Anion Gap 12 (12-20); Aspartate Amino Transferase 24 U/L (5-37); Bilirubin Total 0.6 mg/dL (0.0-1.0); Blood Urea Nitrogen 13 mg/dL (9-16); Calcium 9.1 mg/dL (8.4-10.2); Carbon Dioxide 23 mmol/L (22-29); Chloride 110 mmol/L (96-108); Cholesterol 126 mg/dL (<200); Estimated Glomerular Filt Rate > 60; Glucose Fasting 98 mg/dL (60-99); HDL Cholesterol 50 mg/dL (>40); LDL Cholesterol Calculated 62 mg/dL (<100); Potassium 4.3 mmol/L (3.3-5.1); Sodium 141 mmol/L (135-145); Total Protein 6.9 g/dL (6.5-8.0); Triglycerides 72 mg/dL (<150)
== END 2023-07-14 07:27 | disposition home or self-care (01) ==
LOC: HO.10HDL 07:26
PROVIDERS: Visit Provider Internal Medicine
DX: E78.5 Hyperlipidemia, unspecified (principal); D64.9 Anemia, unspecified; N28.9 Disorder of kidney and ureter, unspecified
CPT/HCPCS: 36415; 80053; 80061; 85025

== ENCOUNTER 2023-07-20 10:16 | Outpatient (AMB) | payer MEDICARE, SELFPAY ==
[2023-07-20 10:18] VITALS: BP 140/66; PULSE 55; O2SAT 98; BMI 30.2
--- NOTE | 2023-07-20 10:18 | MHC.PC.OV ---
Vital Signs 07/20/23 10:18 Height 6 ft Weight 223 lb BMI 30.2 BP 140/66 H Blood Pressure Location Lt brachial Position Sitting Pulse 55 Pulse Source Pulse Oximeter Pulse Oximetry (%) 98 Oxygen Delivery Method Room Air Intake Visit Reasons: follow up Fiscal Specialist Required: No Dry Placer Machine Operator: Not Required per policy Accompanied by: Self / Same As Patient Allergies atorvastatin [From LIPITOR] Allergy (Intermediate, Verified 07/20/23 10:19) RASH Medication List - Last Reconciled 07/20/23 by Margarito Solitario MD aspirin 81 mg PO DAILY benzonatate 100 mg PO TID PRN clotrimazole 1% 1 appl topical BID 2 weeks clotrimazole-betamethasone 1-0.05 % 1 appl topical BID 2 weeks cyclobenzaprine 5 mg PO TID PRN finasteride 5 mg PO DAILY hydrochlorothiazide 12.5 mg PO QAM ibuprofen 600 mg PO Q6H PRN lisinopril 20 mg PO DAILY metoprolol tartrate 50 mg PO BID multivit with min-folic acid 120 mcg (Centrum Adult 50 Plus Fresh-Fruity) 1 tab PO DAILY nifedipine ER 60 mg PO DAILY rosuvastatin 40 mg PO DAILY sildenafil 50 mg PO valacyclovir (Valtrex) 1,000 mg PO TID 7 days Tobacco use date assessed: 07/20/23 Fall risk assessment: No Falls in past year Last assessed Fall Risk: 07/20/23 Dental Screening Dental Screen Date: 07/20/23 Did you have a dental visit in the last 12 months?: No Did you have a dental problem in the last 6 months where you did not have access to dental care?: No Was dental information given to patient?: Patient has dentist HPI follow up HPI Details HTN on Rx; doing well and compliant [facility] Medical History Basal cell carcinoma Renal cancer Prostate cancer Anxiety Other and unspecified hyperlipidemia Obesity Essential hypertension Atherosclerotic cardiovascular disease Surgical History History of umbilical hernia repair (~09/28/22) History of axillary surgery Hx of prostate biopsy History of meniscectomy of left knee History of right inguinal hernia repair History of left nephrectomy History of bilateral carpal tunnel release History of coronary artery bypass graft Family History Father No problems noted. Mother No problems noted. Social History Household Members Other:: brother Housing: House Are you a primary career development associate to a significant other at home: No Do you presently have visiting nurse or other home services: No Alcohol intake: current Alcohol intake frequency: 3 or more drinks per day Alcohol type: beer Patient Tobacco Use Status: Former Tobacco user Quit Date: age 58 Tobacco use type: Cigarette Years Smoked: 40 e-Cigarette/Vaping Use: Never Used Second Hand Smoke Exposure: No Advance Directives Date on File: 09/29/22 service: No Current occupational status: retired Cognitive needs: No Hearing needs: No Vision needs: Yes (glasses) Questionnaire PHQ-9 Over the last 2 weeks, how often have you been bothered by any of the following problems? 1. Little interest or pleasure in doing things: not at all 2. Feeling down, depressed, or hopeless: not at all 3. Trouble falling or staying asleep, or sleeping too much: not at all 4. Feeling tired or having little energy: not at all 5. Poor appetite or overeating: not at all 6. Feeling bad about yourself - or that you are a failure or have let yourself or your family down: not at all 7. Trouble concentrating on things, such as reading the newspaper or watching television: not at all 8. Moving or speaking so slowly that other people could have noticed. Or the opposite - being so fidgety or restless that you have been moving around a lot more than usual: not at all 9. Thoughts that you would be better off or of hurting yourself in some way: not at all Total score: 0 Depression Screening Interpretation: Negative Depression Screening Done: Yes 75299 - PHQ-9 Billing: Yes Source: Developed by Drs. Song Tan, Thania Rivers, Nacho Aguirre and colleagues, with an educational jackie from [employer]. Thrive Questionnaire Date Thrive assessed: 07/20/23 I am a: Patient What is your living situation today?: I have a steady place to live Within the past 12 months, did the food you bought not last and you didn't have the money to get more?: Never true Within the past 12 months, did you worry whether your food would run out before you got money to buy more?: Never true Do you have trouble paying for medicines?: No Do you have trouble getting transportation to medical appointments?: No Do you have trouble paying your heating and electricity bill?: No Do you have trouble taking care of your child, family member or friend?: No Do you have trouble with day-to-day activities such as bathing, preparing meals, shopping, managing finances, etc.?: No Are you currently unemployed and looking for a job?: No Are you interested in more education?: No Please select the resources that you would like help with: None THRIVE Score: 0 AUDIT C Alcohol Use Questionnaire (AUDIT-C) 1. How often do you have a drink containing alcohol?: 4 or more times a week 2. How many drinks containing alcohol do you have on a typical day when you are drinking?: 3 or 4 3. How often do you have six or more drinks on one occasion?: Never Total Score: 5 Score Reviewed/Action Taken: Yes KURTIS-7 AMB Questionnaire KURTIS-7 Date KURTIS - 7 assessed: 07/20/23 Feeling nervous, anxious, or on edge: 0 = Not at all Not being able to stop or control worryin = Not at all Worrying too much about different things: 0 = Not at all Trouble relaxin = Not at all Being so restless that it is hard to sit still: 0 = Not at all Becoming easily annoyed or irritable: 0 = Not at all Feeling afraid as if something awful might happen: 0 = Not at all Total KURTIS-7 score (0-4 normal; 5-9 mild; 10-14 moderate; 15-21 severe): 0 Source: Developed by Drs. Song Tan, Thania Rivers, Nacho Aguirre and colleagues, with an educational jackie from [employer]. Review of Systems Const Denies chills, Denies headache(s) and Denies weight loss ENT Denies headache(s) Card Denies chest pain, Denies syncope, Denies irregular heart rhythm and Denies dyspnea Resp Denies chest congestion, Denies cough and Denies dyspnea GI Denies abdominal pain, Denies change in stool character, Denies nausea and Denies vomiting Musc Denies deformity and Denies joint swelling Neuro Denies syncope and Denies headache(s) Physical exam (Primary Care) Vital Signs: Last Vital Signs Pulse 55 07/20/23 10:18 BP 140/66 H 07/20/23 10:18 Pulse Ox 98 07/20/23 10:18 Oxygen Delivery Method Room Air 07/20/23 10:18 BMI result Body Mass Index 30.2 Tobacco/Smoking Status: Tobacco use Status Tobacco use date assessed 07/20/23 07/20/23 10:20 Patient Tobacco Use Status Former Tobacco user 07/20/23 10:20 Tobacco use type Cigarette 07/20/23 10:20 e-Cigarette/Vaping Use Never Used 07/20/23 10:20 PHQ-9: PHQ-9 Score PHQ-9: Total score 0 07/20/23 10:20 Depression Screening Interpretation: Negative Thrive Assessment: Date of Thrive Assessment Date Thrive assessed 07/20/23 07/20/23 10:20 Const General: cooperative, comfortable, no acute distress and alert Neck Neck: Yes no lymphadenopathy Thyroid: Thyroid normal Resp Effort & Inspection: normal respiratory effort Auscultation: clear to auscultation bilaterally Percussion: percussion normal Cardio Jugular venous distension: no JVD Palpation: normal PMI Rate: regular rate Rhythm: regular rhythm Heart sounds: S1 normal heart sound present and S2 normal heart sound present GI Inspection: Yes normal to inspection Palpation (GI): No hepatosplenomegaly present Skin General skin exam: no rashes or lesions noted Extrem General: Yes no clubbing, cyanosis or edema Assessment and Plan Assessment & Plan (1) Essential hypertension: Code(s): I10 - Essential (primary) hypertension Plan: stable; same rx Orders: Orders Comprehensive [place]. Panel Fast Today Z13.9 - Encounter for screening, unspecified Complete Blood Count Auto Diff Today Z13.0 - Encounter for screening for diseases of the blood and blood-forming organs and certain disorders involving the immune mechanism Lipid Panel Today Z13.220 - Encounter for screening for lipoid disorders Prostate Specific Antigen Scr Today Z00.00 - Encounter for general adult medical examination without abnormal findings Coding Level of Care Code Est Pt Level 3 (46585) Diagnoses Essential hypertension I10
== END 2023-07-20 10:35 | disposition home or self-care (01) ==
PROVIDERS: PCP Internal Medicine; Visit Provider Internal Medicine
DX: I10 Essential (primary) hypertension (principal)
CPT/HCPCS: 99213

== ENCOUNTER 2023-08-30 14:18 | Outpatient (AMB) | payer MEDICARE, SELFPAY ==
[2023-08-30 14:30] VITALS: BP 140/70; PULSE 59
--- NOTE | 2023-08-30 14:30 | MHC.OFFVIS ---
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 Required: No Accompanied by: Self / Same As Patient Allergies atorvastatin [From LIPITOR] Allergy (Intermediate, Verified 07/20/23 10:19) RASH Medication List - Last Reconciled 08/30/23 by Manuel Henderson MD aspirin 81 mg PO DAILY benzonatate 100 mg PO TID PRN clotrimazole 1% 1 appl topical BID 2 weeks clotrimazole-betamethasone 1-0.05 % 1 appl topical BID 2 weeks cyclobenzaprine 5 mg PO TID PRN finasteride 5 mg PO DAILY hydrochlorothiazide 12.5 mg PO QAM ibuprofen 600 mg PO Q6H PRN lisinopril 20 mg PO DAILY metoprolol tartrate 50 mg PO BID multivit with min-folic acid 120 mcg (Centrum Adult 50 Plus Fresh-Fruity) 1 tab PO DAILY nifedipine ER 60 mg PO DAILY rosuvastatin 40 mg PO DAILY sildenafil 50 mg PO HPI Comments Details: Barron returns for follow-up regarding coronary disease. He states he is doing fine. No complaints like angina or shortness of breath or in fact anything cardiac sounding. Fairly active with absolutely no limitations whatsoever. [facility] Medical History Basal cell carcinoma Renal cancer Prostate cancer Anxiety Other and unspecified hyperlipidemia Obesity Essential hypertension Atherosclerotic cardiovascular disease Surgical History History of umbilical hernia repair (~09/28/22) History of axillary surgery Hx of prostate biopsy History of meniscectomy of left knee History of right inguinal hernia repair History of left nephrectomy History of bilateral carpal tunnel release History of coronary artery bypass graft Family History Father No problems noted. Mother No problems noted. Social History Household Members Other:: brother Housing: House Are you a primary primary care physician to a significant other at home: No Do you presently have visiting nurse or other home services: No Alcohol intake: current Alcohol intake frequency: 3 or more drinks per day Alcohol type: beer Patient Tobacco Use Status: Former Tobacco user Tobacco use type: Cigarette Years Smoked: 40 e-Cigarette/Vaping Use: Never Used Second Hand Smoke Exposure: No Advance Directives Date on File: 09/29/22 service: No Current occupational status: retired Cognitive needs: No Hearing needs: No Vision needs: Yes (glasses) Review of Systems Const Denies chills, Denies fatigue, Denies fever(s), Denies frequent falls, Denies weakness, Denies weight gain and Denies weight loss ENT Denies dizziness Card Denies chest pain, Denies leg edema, Denies lightheadedness, Denies palpitations, Denies dyspnea and Denies dyspnea on exertion Resp Denies cough, Denies dyspnea and Denies dyspnea on exertion GI Denies hematochezia Musc Denies abnormal gait, Denies muscle weakness, Denies numbness, Denies radiating pain into limb and Denies tingling Neuro Denies abnormal gait, Denies dizziness, Denies frequent falls, Denies numbness, Denies tingling and Denies weakness Endo Denies fatigue and Denies palpitations Physical Exam Vital Signs: Last Vital Signs Pulse 59 08/30/23 14:30 BP 140/70 H 08/30/23 14:30 BMI result Body Mass Index 30.0 Const General: comfortable and no acute distress Orientation/consciousness: patient oriented x3 HEENT Other: Unremarkable Head: Yes normal to inspection Neck Neck: Yes normal visual inspection Chest Chest palpation & inspection: normal inspection of the chest Resp Auscultation: clear to auscultation bilaterally Cardio Palpation: normal PMI Heart sounds: S1 normal heart sound present, S2 normal heart sound present, no gallops, no murmurs and no rubs GI Palpation (GI): Soft to palpation Back/Spine/Pelvis Other: unremarkable Skin General skin exam: no rashes or lesions noted Neuro General: patient oriented x3 Extrem General: Yes normal to inspection Psych Mental Status: mental status grossly normal Office Procedures EKG Details: EKG with sinus rhythm at 59/Min; no significant ST-T changes and otherwise unremarkable. [place]. [address]-[id number], Complete Assessment & Plan Assessment & Plan (1) Atherosclerotic cardiovascular disease: Code(s): I25.10 - Atherosclerotic heart disease of [place] coronary artery without angina pectoris Category: Medical Plan: No angina. Continue aspirin and beta-blockers. (2) Status post aorto-coronary artery bypass graft: Code(s): Z95.1 - Presence of aortocoronary bypass graft Category: Surgical Plan: Remote surgery. Stable. Doing well. (3) Essential hypertension: Code(s): I10 - Essential (primary) hypertension Category: Medical Plan: Somewhat of borderline readings today but he states home pressures are much lower than this. No changes made. He is on lisinopril, nifedipine, hydrochlorothiazide. (4) Other and unspecified hyperlipidemia: Code(s): E78.5 - Hyperlipidemia, unspecified Category: Medical Plan: Continue statins. Last LDL 62 mg/dL and triglycerides 72 mg/dL. Coding Level of Care Code Est Pt Level 4 (95924) Diagnoses Atherosclerotic cardiovascular disease I25.10 Status post aorto-coronary artery bypass graft Z95.1 Essential hypertension I10 Other and unspecified hyperlipidemia E78.5 CPT Codes EKG - CPT: 46061-[id number], Complete ([id number])
== END 2023-08-30 14:54 | disposition home or self-care (01) ==
PROVIDERS: PCP Internal Medicine; Visit Provider Internal Medicine
DX: I25.10 Atherosclerotic heart disease of native coronary artery without angina pectoris (principal); Z95.1 Presence of aortocoronary bypass graft; I10 Essential (primary) hypertension; E78.5 Hyperlipidemia, unspecified
CPT/HCPCS: 93010; 99214

== ENCOUNTER → 2023-08-30 14:18 | Outpatient (BNVA) | payer MEDICARE, SELFPAY | PROVIDERS: PCP Internal Medicine; Visit Provider Internal Medicine | DX: I25.10 Atherosclerotic heart disease of native coronary artery without angina pectoris (principal); I10 Essential (primary) hypertension; E78.5 Hyperlipidemia, unspecified; Z95.1 Presence of aortocoronary bypass graft | CPT/HCPCS: 93005; 99212 ==

== ENCOUNTER 2024-01-20 08:34 | Outpatient (AMB) | payer MEDICARE, SELFPAY ==
--- NOTE | 2024-01-20 08:35 | A.OFFPC_ITS ---
Vital Signs 01/20/24 08:36 Height 6 ft Weight 223 lb 4 oz BMI 30.3 BP 120/82 Blood Pressure Location Lt brachial Position Sitting Pulse 59 Pulse Source Pulse Oximeter Pulse Oximetry (%) 99 Oxygen Delivery Method Room Air Intake Visit Reasons: 6 mo f/u Intake Note: Patient is here to follow up on HLD, HTN. Pt decline flu shot today. Data Abstractor Required: No Head Sawyer Automatic: Not Required per policy Accompanied by: Self / Same As Patient Allergies atorvastatin [From LIPITOR] Allergy (Intermediate, Verified 01/20/24 08:36) RASH Medication List - Last Reconciled 01/20/24 by Margarito Solitario MD aspirin 81 mg PO DAILY clotrimazole 1% 1 appl topical BID 2 weeks clotrimazole-betamethasone 1-0.05 % 1 appl topical BID 2 weeks finasteride 5 mg PO DAILY hydrochlorothiazide 12.5 mg PO QAM ibuprofen 600 mg PO Q6H PRN lisinopril 20 mg PO DAILY metoprolol tartrate 50 mg PO BID multivit with min-folic acid 120 mcg (Centrum Adult 50 Plus Fresh-Fruity) 1 tab PO DAILY nifedipine ER 60 mg PO DAILY rosuvastatin 40 mg PO DAILY sildenafil 50 mg PO Tobacco use date assessed: 01/20/24 Fall risk assessment: No Falls in past year Last assessed Fall Risk: 01/20/24 Dental Screening Dental Screen Date: 07/20/23 HPI 6 mo f/u HPI Details hyperlipidemia on rx; doing well and compliant [facility] Medical History Basal cell carcinoma Renal cancer Prostate cancer Anxiety Other and unspecified hyperlipidemia Obesity Essential hypertension Atherosclerotic cardiovascular disease Surgical History History of umbilical hernia repair (~09/28/22) History of axillary surgery Hx of prostate biopsy History of meniscectomy of left knee History of right inguinal hernia repair History of left nephrectomy History of bilateral carpal tunnel release History of coronary artery bypass graft Family History Father No problems noted. Mother No problems noted. Social History Household Members Other:: brother Housing: House Are you a primary caregiver services home to a significant other at home: No Do you presently have visiting nurse or other home services: No Alcohol intake: current Alcohol intake frequency: 3 or more drinks per day Alcohol type: beer Patient Tobacco Use Status: Former Tobacco user Tobacco use type: Cigarette Years Smoked: 40 e-Cigarette/Vaping Use: Never Used Second Hand Smoke Exposure: No Advance Directives Date on File: 09/29/22 service: No Current occupational status: retired Cognitive needs: No Hearing needs: No Vision needs: Yes (glasses) Questionnaire Thrive Questionnaire Date Thrive assessed: 07/20/23 KURTIS-7 AMB Questionnaire KURTIS-7 Date KURTIS - 7 assessed: 07/20/23 Source: Developed by Drs. Song Tan, Thania Rivers, Nacho Aguirre and colleagues, with an educational jackie from [employer]. Review of Systems Const Denies chills, Denies headache(s) and Denies weight loss ENT Denies headache(s) Card Denies chest pain, Denies syncope, Denies irregular heart rhythm and Denies dyspnea Resp Denies chest congestion, Denies cough and Denies dyspnea GI Denies abdominal pain, Denies change in stool character, Denies nausea and Denies vomiting Musc Denies deformity and Denies joint swelling Neuro Denies syncope and Denies headache(s) Physical exam (Primary Care) Vital Signs: Last Vital Signs Pulse 59 01/20/24 08:36 BP 120/82 01/20/24 08:36 Pulse Ox 99 01/20/24 08:36 Oxygen Delivery Method Room Air 01/20/24 08:36 BMI result Body Mass Index 30.3 Tobacco/Smoking Status: Tobacco use Status Tobacco use date assessed 01/20/24 01/20/24 08:41 Patient Tobacco Use Status Former Tobacco user 01/20/24 08:41 Tobacco use type Cigarette 01/20/24 08:41 e-Cigarette/Vaping Use Never Used 01/20/24 08:41 Thrive Assessment: Date of Thrive Assessment Date Thrive assessed 07/20/23 01/20/24 08:41 Const General: cooperative, comfortable, no acute distress and alert Neck Neck: Yes no lymphadenopathy Thyroid: Thyroid normal Resp Effort & Inspection: normal respiratory effort Auscultation: clear to auscultation bilaterally Percussion: percussion normal Cardio Jugular venous distension: no JVD Palpation: normal PMI Rate: regular rate Rhythm: regular rhythm Heart sounds: S1 normal heart sound present and S2 normal heart sound present GI Inspection: Yes normal to inspection Palpation (GI): No hepatosplenomegaly present Skin General skin exam: no rashes or lesions noted Extrem General: Yes no clubbing, cyanosis or edema Coding Level of Care Code Est Pt Level 3 (67009) Diagnoses Hyperlipidemia E78.5 Assessment & Plan Assessment & Plan (1) Hyperlipidemia: Code(s): E78.5 - Hyperlipidemia, unspecified Category: Medical Plan: stable ;same rx Orders: Orders Lipid Panel Today Z13.220 - Encounter for screening for lipoid disorders Complete Blood Count Auto Diff Today Z13.0 - Encounter for screening for diseases of the blood and blood-forming organs and certain disorders involving the immune mechanism Thyroid Stimulating Hormone Today Z13.29 - Encounter for screening for other suspected endocrine disorder Comprehensive [place]. Panel Fast Today Z13.9 - Encounter for screening, unspecified Medications: Refilled ibuprofen 600 mg PO Q6H PRN 30 tabs 4RF pain
[2024-01-20 08:36] VITALS: BP 120/82; PULSE 59; O2SAT 99; BMI 30.3
== END 2024-01-20 08:58 | disposition home or self-care (01) ==
PROVIDERS: PCP Internal Medicine; Visit Provider Internal Medicine
DX: E78.5 Hyperlipidemia, unspecified (principal)

== ENCOUNTER → 2024-01-20 08:34 | Outpatient (BNVA) | payer MEDICARE, SELFPAY | PROVIDERS: PCP Internal Medicine; Visit Provider Internal Medicine | DX: E78.5 Hyperlipidemia, unspecified (principal) | CPT/HCPCS: 99212 ==

== ENCOUNTER 2024-01-23 07:29 | Outpatient (REF) | payer MEDICARE, SELFPAY ==
[2024-01-23 07:48] LABS: MANUAL DIFF FLAG NO
[2024-01-23 08:06] LABS: Basophils Percent Auto 0.7 % (0-2); Eosinophils Absolute Auto 0.4 X10*3/uL (0.0-0.4); Eosinophils Percent Auto 5.7 % (0-4); Hematocrit 42.9 % (42.0-52.0); Hemoglobin 14.5 g/dl (14.0-18.0); Lymphocytes Absolute Auto 1.8 X10*3/uL (1.2-4.9); Lymphocytes Percent Auto 29.8 % (20-40); Mean Corpuscular HGB Conc 33.8 g/dl (31.0-36.0); Mean Corpuscular Hemoglobin 31.2 pg (27.0-33.0); Mean Corpuscular Volume 92.3 fL (80.0-98.0); Mean Platelet Volume 10.5 fL (9.4-12.4); Monocytes Absolute Auto 0.6 X10*3/uL (0.1-1.2); Monocytes Percent Auto 9.5 % (2-11); Neutrophils Absolute Auto 3.3 x10*3/uL (2.0-8.3); Neutrophils Percent Auto 54.3 % (45-73); Platelet Count 209 X10*3/uL (160-400); Red Blood Count 4.65 X10*6/uL (4.60-5.80); Red Cell Distribution Width 12.3 % (11.0-16.0); White Blood Count 6.1 X10*3/uL (4.8-10.8)
[2024-01-23 08:40] LABS: Alanine Aminotransferase 20 U/L (0-40); Albumin Level 4.1 g/dL (3.5-5.0); Alkaline Phosphatase 101 U/L (39-117); Anion Gap 12 (12-20); Aspartate Amino Transferase 22 U/L (5-37); Bilirubin Total 0.5 mg/dL (0.0-1.0); Blood Urea Nitrogen 16 mg/dL (9-16); Carbon Dioxide 25 mmol/L (22-29); Chloride 107 mmol/L (96-108); Cholesterol 142 mg/dL (<200); Estimated Glomerular Filt Rate > 60; Glucose Fasting 105 mg/dL (60-99); HDL Cholesterol 55 mg/dL (>40); LDL Cholesterol Calculated 71 mg/dL (<100); Potassium 4.1 mmol/L (3.3-5.1); Sodium 140 mmol/L (135-145); Total Protein 6.6 g/dL (6.5-8.0); Triglycerides 80 mg/dL (<150)
[2024-01-23 08:55] LABS: Thyroid Stimulating Hormone 2.68 uIU/mL (0.32-4.0)
== END 2024-01-23 07:30 | disposition home or self-care (01) ==
LOC: HO.LAB 07:29
PROVIDERS: PCP Internal Medicine; Visit Provider Internal Medicine
DX: Z13.0 Encounter for screening for diseases of the blood and blood-forming organs and certain disorders involving the immune mechanism (principal); Z13.220 Encounter for screening for lipoid disorders; Z13.29 Encounter for screening for other suspected endocrine disorder; Z13.9 Encounter for screening, unspecified
CPT/HCPCS: 36415; 80053; 80061; 84443; 85025

== ENCOUNTER 2024-04-25 08:22 | Outpatient (AMB) | payer MEDICARE, SELFPAY ==
[2024-04-25 08:26] VITALS: BP 122/82; PULSE 61; O2SAT 96; BMI 31.1
--- NOTE | 2024-04-25 08:26 | A.OFFPC_ITS ---
Vital Signs 04/25/24 08:26 Height 6 ft Weight 229 lb BMI 31.1 BP 122/82 Blood Pressure Location Lt brachial Position Sitting Pulse 61 Pulse Source Pulse Oximeter Pulse Oximetry (%) 96 Oxygen Delivery Method Room Air Intake Visit Reasons: 3mth f/u Automatic Silk Screen Printer Required: No Accompanied by: Self / Same As Patient Allergies atorvastatin [From LIPITOR] Allergy (Intermediate, Verified 04/25/24 08:27) RASH Tobacco use date assessed: 01/20/24 Fall risk assessment: No Falls in past year Last assessed Fall Risk: 04/25/24 Dental Screening Dental Screen Date: 04/25/24 Did you have a dental visit in the last 12 months?: Yes Did you have a dental problem in the last 6 months where you did not have access to dental care?: No Was dental information given to patient?: Patient has dentist HPI 3mth f/u HPI Details HTN on Rx; compliant; feels well PFS Medical History Basal cell carcinoma Renal cancer Prostate cancer Anxiety Other and unspecified hyperlipidemia Obesity Essential hypertension Atherosclerotic cardiovascular disease Surgical History History of umbilical hernia repair (~09/28/22) History of axillary surgery Hx of prostate biopsy History of meniscectomy of left knee History of right inguinal hernia repair History of left nephrectomy History of bilateral carpal tunnel release History of coronary artery bypass graft Family History Father No problems noted. Mother No problems noted. Social History Household Members Other:: brother Housing: House Are you a primary career resource specialist to a significant other at home: No Do you presently have visiting nurse or other home services: No Alcohol intake: current Alcohol intake frequency: 3 or more drinks per day Alcohol type: beer Patient Tobacco Use Status: Former Tobacco user Tobacco use type: Cigarette Years Smoked: 40 e-Cigarette/Vaping Use: Never Used Second Hand Smoke Exposure: No Advance Directives Date on File: 09/29/22 service: No Current occupational status: retired Cognitive needs: No Hearing needs: No Vision needs: Yes (glasses) Questionnaire PHQ-9 Over the last 2 weeks, how often have you been bothered by any of the following problems? 1. Little interest or pleasure in doing things: not at all 2. Feeling down, depressed, or hopeless: not at all 3. Trouble falling or staying asleep, or sleeping too much: not at all 4. Feeling tired or having little energy: not at all 5. Poor appetite or overeating: not at all 6. Feeling bad about yourself - or that you are a failure or have let yourself or your family down: not at all 7. Trouble concentrating on things, such as reading the newspaper or watching television: not at all 8. Moving or speaking so slowly that other people could have noticed. Or the opposite - being so fidgety or restless that you have been moving around a lot more than usual: not at all 9. Thoughts that you would be better off or of hurting yourself in some way: not at all Total score: 0 Depression Screening Interpretation: Negative Depression Screening Done: Yes 87697 - PHQ-9 Billing: Yes Source: Developed by Drs. Song Tan, Thania Rivers, Nacho Aguirre and colleagues, with an educational jackie from [employer]. Thrive Questionnaire Date Thrive assessed: 04/25/24 I am a: Patient What is your living situation today?: I have a steady place to live Within the past 12 months, did the food you bought not last and you didn't have the money to get more?: Never true Within the past 12 months, did you worry whether your food would run out before you got money to buy more?: Never true Do you have trouble paying for medicines?: No Do you have trouble getting transportation to medical appointments?: No Do you have trouble paying your heating and electricity bill?: No Do you have trouble taking care of your child, family member or friend?: No Do you have trouble with day-to-day activities such as bathing, preparing meals, shopping, managing finances, etc.?: No Are you currently unemployed and looking for a job?: No Are you interested in more education?: No Please select the resources that you would like help with: None Currently or been in a relationship where the following occur: No concerns reported THRIVE Score: 0 AUDIT C Alcohol Use Questionnaire (AUDIT-C) 1. How often do you have a drink containing alcohol?: 4 or more times a week 2. How many drinks containing alcohol do you have on a typical day when you are drinking?: 3 or 4 3. How often do you have six or more drinks on one occasion?: Never Total Score: 5 Score Reviewed/Action Taken: Yes KURTIS-7 AMB Questionnaire KURTIS-7 Date KURTIS - 7 assessed: 04/25/24 Feeling nervous, anxious, or on edge: 0 = Not at all Not being able to stop or control worryin = Not at all Worrying too much about different things: 0 = Not at all Trouble relaxin = Not at all Being so restless that it is hard to sit still: 0 = Not at all Becoming easily annoyed or irritable: 0 = Not at all Feeling afraid as if something awful might happen: 0 = Not at all Total KURTIS-7 score (0-4 normal; 5-9 mild; 10-14 moderate; 15-21 severe): 0 Source: Developed by Drs. Song Tan, Thania Rivers, Nacho Aguirre and colleagues, with an educational jackie from [employer]. Review of Systems Const Denies chills, Denies headache(s) and Denies weight loss ENT Denies headache(s) Card Denies chest pain, Denies syncope, Denies irregular heart rhythm and Denies dyspnea Resp Denies chest congestion, Denies cough and Denies dyspnea GI Denies abdominal pain, Denies change in stool character, Denies nausea and Denies vomiting Musc Denies deformity and Denies joint swelling Neuro Denies syncope and Denies headache(s) Physical exam (Primary Care) Vital Signs: Last Vital Signs Pulse 61 04/25/24 08:26 BP 122/82 04/25/24 08:26 Pulse Ox 96 04/25/24 08:26 Oxygen Delivery Method Room Air 04/25/24 08:26 BMI result Body Mass Index 31.1 Tobacco/Smoking Status: Tobacco use Status Tobacco use date assessed 01/20/24 04/25/24 08:29 Patient Tobacco Use Status Former Tobacco user 04/25/24 08:29 Tobacco use type Cigarette 04/25/24 08:29 e-Cigarette/Vaping Use Never Used 04/25/24 08:29 PHQ-9: PHQ-9 Score PHQ-9: Total score 0 04/25/24 08:32 Depression Screening Interpretation: Negative Thrive Assessment: Date of Thrive Assessment Date Thrive assessed 04/25/24 04/25/24 08:32 Currently or been in a relationship where the following occur: No concerns reported Const General: cooperative, comfortable, no acute distress and alert Neck Neck: Yes no lymphadenopathy Thyroid: Thyroid normal Resp Effort & Inspection: normal respiratory effort Auscultation: clear to auscultation bilaterally Percussion: percussion normal Cardio Jugular venous distension: no JVD Palpation: normal PMI Rate: regular rate Rhythm: regular rhythm Heart sounds: S1 normal heart sound present and S2 normal heart sound present GI Inspection: Yes normal to inspection Palpation (GI): No hepatosplenomegaly present Skin General skin exam: no rashes or lesions noted Extrem General: Yes no clubbing, cyanosis or edema Coding Level of Care Code Est Pt Level 3 (89397) Diagnoses Essential hypertension I10 Additional Codes PHQ-9 - 06063 - PHQ-9 Billing: Yes ([id number]) Assessment & Plan Assessment & Plan (1) Essential hypertension: Code(s): I10 - Essential (primary) hypertension Category: Medical Plan: stable ;same rx
--- OUTSIDE RECORDS SUMMARY | 2024-04-25 08:53 | XMS_ITS | Clinical Summary ---
Author Organization [facility] Address [address] [place] [address] Phone Care Team Providers Care Public Opinion Survey Taker Name Role Phone Margarito Solitario MD Primary Care Provider [phone] Allergies Active Allergy Reactions Criticality Noted Date Comments Atorvastatin Other (see comments) 09/18/2020 Medications Multiple Vitamins-Mineral s (CENTRUM ADULTS PO) Take 1 tablet by mouth 1 (one) time each day Active aspirin (ST DAYAMI) 81 MG EC tablet Take 1 tablet by mouth 1 (one) time each day Active finasteride (PROSCAR) 5 MG tablet Take 1 tablet by mouth 1 (one) time each day Active metoprolol tartrate 25 MG tablet 50 mg 2 (two) times a day Active rosuvastatin (CRESTOR) 40 MG tablet Take 40 mg by mouth 1 (one) time each day 09/27/2020 Active tamsulosin (FLOMAX) 0.4 MG 24 hr capsule Take 0.4 mg by mouth 1 (one) time each day Active sildenafil (VIAGRA) 50 MG tablet TAKE 1 TABLET BY MOUTH ONE HOUR PRIOR TO ACTIVITY. NO MORE THAN ONCE DAILY 04/26/2022 Active NIFEdipine CC (ADALAT CC) 60 MG 24 hr tablet Take 1 tablet (60 mg total) by mouth 1 (one) time each day DO NOT CRUSH CHEW OR SPLIT 90 tablet 04/12/2023 Active hydroCHLOROthiaz libertad 12.5 MG tablet Take 12.5 mg by mouth 1 (one) time each day Active lisinopril 20 MG tablet Take 1 tablet (20 mg total) by mouth 1 (one) time each day 90 tablet 3 06/20/2023 5 Active Active Problems Problem Noted Date Diagnosed Date Encounter for other administrative examination 0 06/08/2023 Primary malignant neoplasm of left kidney 2020 Chronic kidney disease stage 3 09/18/2020 Absent kidney 09/18/2020 Essential hypertension 09/18/2020 Family History Medical History Relation Comments Heart disease Father Hypertension Father Heart disease Mother Hypertension Mother Hypertension Sibling sister Relation Status Comments Father Mother Sibling Social History Tobacco Use Types Packs/Day Years Used Date Smoking Tobacco: Never Smokeless Tobacco: Never Tobacco Cessation:Counseling Given: Not Answered Alcohol Use Standard Drinks/Week Comments Yes 0 (1 standard drink = 0.6 oz pure alcohol) Alcoholic Drinks/day: 3 or more drinks per day Sex and Gender Information Value Date Recorded Sex Assigned at Not on file Legal Sex Male 4:52 PM EST Gender Identity Not on file Sexual Orientation Not on file Last Filed Vital Signs Vital Sign Reading Time Taken Comments Blood Pressure 130/68 06/09/2023 1:48 PM EDT Pulse 67 06/09/2023 1:48 PM EDT Temperature - - Respiratory Rate - - Oxygen Saturation 97% 06/14/2022 12:55 PM EDT Inhaled Oxygen Concentration - - Weight 103 kg (226 lb) 06/09/2023 1:48 PM EDT Height 185.4 cm (6' 1 ) 06/14/2022 12:55 PM EDT Body Mass Index 29.82 06/14/2022 12:55 PM EDT Plan of Treatment Upcoming Encounters Date Type Department Care Team (Late st Contact Info) Description 05/24/2024 2:30 PM EDT Office Visit [facility] [address] [place] [address] Celestino Plasencia MD [address] [address] Health Maintenance Due Date Last Done Comments Pneumococcal Vaccine: 65+ Ye ars (1 of 2 - PCV) 12/04/1951 Influenza Vaccine (#1) 2023 Hepatitis B Vaccine Aged Out No longe r eligible based on patient's age to complete this topic Insurance [facility] MEDICARE [facility] MEDICARE Care Teams Public Opinion Survey Taker Relationship Specialty Start Date End Date Margarito Solitario MD [address] [place], [place] PCP - General 03/10/20
== END 2024-04-25 08:48 | disposition home or self-care (01) ==
PROVIDERS: PCP Internal Medicine; Visit Provider Internal Medicine
DX: I10 Essential (primary) hypertension (principal)

== ENCOUNTER → 2024-04-25 08:22 | Outpatient (BNVA) | payer MEDICARE, SELFPAY | PROVIDERS: PCP Internal Medicine; Visit Provider Internal Medicine | DX: I10 Essential (primary) hypertension (principal) | CPT/HCPCS: 96127; 99212 ==

== ENCOUNTER 2024-05-17 08:23 | Outpatient (REF) | payer MEDICARE, SELFPAY ==
[2024-05-17 10:58] LABS: Anion Gap 11 (12-20); Blood Urea Nitrogen 20 mg/dL (9-16); Carbon Dioxide 22 mmol/L (22-29); Chloride 111 mmol/L (96-108); Estimated Glomerular Filt Rate > 60; Glucose Random 100 mg/dL (60-115); Potassium 4.7 mmol/L (3.3-5.1); Sodium 139 mmol/L (135-145)
== END 2024-05-17 08:24 | disposition home or self-care (01) ==
LOC: HO.10HDL 08:23
PROVIDERS: Visit Provider Internal Medicine
DX: N18.2 Chronic kidney disease, stage 2 (mild) (principal); Z90.5 Acquired absence of kidney
CPT/HCPCS: 36415; 80048

== ENCOUNTER 2024-07-24 07:29 | Outpatient (REF) | payer MEDICARE, SELFPAY ==
--- NOTE | ~2024-07-24 | XR_ITS ---
EXAMINATION: XR CHEST 2 VIEWS HISTORY: MALIGNANT NEOPLASM OF LT KIDNEY COMPARISON: Comparison is made with the prior examination dated 11/09/2022. FINDINGS: PA and lateral views of the chest are submitted. The lungs are expanded and clear. There is no pleural effusion, pneumothorax, or pulmonary vascular congestion. The heart is normal in size. The patient is status post median sternotomy. There is degenerative disc disease of the spine. XR/XR chest 2V IMPRESSION: No acute cardiopulmonary abnormality. Electronically signed by: Song Meeks MD 07/24/2024 07:58 AM EDT
== END 2024-07-24 07:30 | disposition home or self-care (01) ==
LOC: HO.XRAY 07:29
PROVIDERS: Visit Provider Urology
DX: C64.2 Malignant neoplasm of left kidney, except renal pelvis (principal)
CPT/HCPCS: 71046

== ENCOUNTER → 2024-07-24 07:33 | Outpatient (BNV) | payer MEDICARE, SELFPAY | PROVIDERS: Visit Provider Radiology Diagnostic Radiology | DX: M51.369 Other intervertebral disc degeneration, lumbar region without mention of lumbar back pain or lower extremity pain (principal) | CPT/HCPCS: 71046 ==

== ENCOUNTER 2024-08-29 07:51 | Outpatient (AMB) | payer MEDICARE, SELFPAY ==
--- OUTSIDE RECORDS SUMMARY | 2024-08-29 07:53 | XMS_ITS | Clinical Summary ---
Author Organization [facility] Address [address] [place] [address] Phone Care Team Providers Care Manager Air Name Role Phone Margarito Solitario MD Primary Care Provider [phone] Allergies Active Allergy Reactions Criticality Noted Date [...] lisinopril 20 MG tablet Take 1 tablet by mouth once daily 90 tablet 06/04/2024 Active Active Problems Problem Noted Date Diagnosed Date Encounter for other administrative examination 0 06/08/2023 Primary malignant neoplasm of left kidney 2020 Chronic kidney disease stage 3 09/18/2020 Absent kidney 09/18/2020 Essential hypertension 09/18/2020 Encounters Date Type Department Care Team Description 06/04/2024 [facility]ill [facility] [address] [place] [address] Celestino Plasencia MD from Last 3 Months Family History Medical History Relation Comments Heart [...] Sign Reading Time Taken Comments Blood Pressure 128/88 05/24/2024 2:41 PM EDT Pulse 61 05/24/2024 2:41 PM EDT Temperature - - Respiratory Rate - - Oxygen Saturation 96% 05/24/2024 2:41 PM EDT Inhaled Oxygen Concentration - - Weight 107 kg (234 lb 12.8 oz) 05/24/2024 2:41 P M EDT Height 185.4 cm (6' 1 ) 06/14/2022 12:55 PM EDT Body Mass Index 30.98 06/14/2022 12:55 PM EDT Plan of Treatment Upcoming Encounters Date Type Department Care Team (Late st Contact Info) Description 05/23/2025 1:00 PM EDT Office Visit [facility] [address] [place] [address] Celestino Plasencia MD [address] [facility] [address] [place] [address] Health Maintenance Due Date Last Done Comments Pneumococcal Vaccine: 50+ Ye ars (1 of 2 - PCV) 12/04/1964 Influenza Vaccine (Season Ended) 2024 Hepatitis B Vaccine Aged Out No longe r eligible based on patient's age to complete this topic Insurance [facility] Medicare [facility] Medicare Care Teams Manager Air Relationship Specialty Start Date End Date Margarito Solitario MD [address] [place], [place] PCP - General 03/10/20
[2024-08-29 08:13] VITALS: BP 138/72; PULSE 66; BMI 31.2
--- NOTE | 2024-08-29 08:13 | MHC.OFFVIS ---
Vital Signs 08/29/24 08:13 Height 6 ft Weight 230 lb BMI 31.2 BP 138/72 Blood Pressure Location Lt brachial Position Sitting Pulse 66 Pulse Source Monitor Intake Visit Reasons: 1 yr f/up Allergies atorvastatin (From LIPITOR) Allergy (Intermediate, Verified 04/25/24 08:27) RASH Medication List - Last Reconciled 08/29/24 by Manuel Henderson MD aspirin 81 mg PO DAILY clotrimazole 1% 1 appl topical BID 2 weeks clotrimazole-betamethasone 1-0.05 % 1 appl topical BID 2 weeks finasteride 5 mg PO DAILY hydrochlorothiazide 12.5 mg PO QAM ibuprofen 600 mg PO Q6H PRN lisinopril 20 mg PO DAILY metoprolol tartrate 50 mg PO BID multivit with min-folic acid 120 mcg (Centrum Adult 50 Plus Fresh-Fruity) 1 tab PO DAILY nifedipine ER 60 mg PO DAILY rosuvastatin 40 mg PO DAILY sildenafil 50 mg PO HPI Comments Details: Barron returns for follow-up regarding coronary disease. He states that he is getting along fine. No complaints like angina or shortness of breath or in fact anything cardiac related. He states that he has gained some weight which is bothering him but otherwise doing fine. [facility]LY [facility], [facility] Medical History Basal cell carcinoma Renal cancer Prostate cancer Anxiety Other and unspecified hyperlipidemia Obesity Essential hypertension Atherosclerotic cardiovascular disease Surgical History History of umbilical hernia repair (~09/28/22) History of axillary surgery Hx of prostate biopsy History of meniscectomy of left knee History of right inguinal hernia repair History of left nephrectomy History of bilateral carpal tunnel release History of coronary artery bypass graft Family History Father No problems noted. Mother No problems noted. Social History Household Members Other:: brother Housing: House Are you a primary caregivers non medical to a significant other at home: No Do you presently have visiting nurse or other home services: No Alcohol intake: current Alcohol intake frequency: 3 or more drinks per day Alcohol type: beer Patient Tobacco Use Status: Former Tobacco user Tobacco use type: Cigarette Years Smoked: 40 e-Cigarette/Vaping Use: Never Used Second Hand Smoke Exposure: No Advance Directives Date on File: 09/29/22 service: No Current occupational status: retired Cognitive needs: No Hearing needs: No Vision needs: Yes (glasses) Review of Systems Const Denies weakness ENT Denies dizziness Card Denies chest pain, Denies chest pain with activity, Denies syncope, Denies rapid heart rate, Denies pedal edema, Denies edema, Denies leg edema, Denies lightheadedness, Denies palpitations, Denies dyspnea, Denies dyspnea on exertion and Denies orthopnea Resp Denies cough, Denies dyspnea and Denies dyspnea on exertion GI Denies hematochezia and Denies change in stool character Musc Denies abnormal gait, Denies muscle cramps, Denies muscle weakness, Denies numbness, Denies radiating pain into limb and Denies tingling Neuro Denies abnormal gait, Denies dizziness, Denies syncope, Denies numbness, Denies tingling and Denies weakness Endo Denies palpitations Physical Exam Vital Signs: Last Vital Signs Pulse 66 08/29/24 08:13 BP 138/72 08/29/24 08:13 BMI result Body Mass Index 31.2 Const General: comfortable and no acute distress Orientation/consciousness: patient oriented x3 HEENT Other: Unremarkable Head: Yes normal to inspection Neck Neck: Yes normal visual inspection Chest Chest palpation & inspection: normal inspection of the chest Resp Auscultation: clear to auscultation bilaterally Cardio Palpation: normal PMI Heart sounds: S1 normal heart sound present, S2 normal heart sound present, no gallops, no murmurs and no rubs GI Palpation (GI): Soft to palpation Back/Spine/Pelvis Other: unremarkable Skin General skin exam: no rashes or lesions noted Neuro General: patient oriented x3 Extrem General: Yes normal to inspection Psych Mental Status: mental status grossly normal Office Procedures EKG Details: EKG with underlying sinus rhythm at 66/Min; cannot exclude old inferior infarct; [place] [id number], Complete Assessment & Plan Assessment & Plan (1) Atherosclerotic cardiovascular disease: Code(s): I25.10 - Atherosclerotic heart disease of three affiliated coronary artery without angina pectoris Category: Medical Plan: Stable without any cardiac symptoms. Continue aspirin and beta-blockers. (2) Status post aorto-coronary artery bypass graft: Code(s): Z95.1 - Presence of aortocoronary bypass graft Category: Surgical Plan: Remote surgery. Stable. Doing well. (3) Essential hypertension: Code(s): I10 - Essential (primary) hypertension Category: Medical Plan: Remains on hydrochlorothiazide, lisinopril, nifedipine. No changes. (4) Other and unspecified hyperlipidemia: Code(s): E78.5 - Hyperlipidemia, unspecified Category: Medical Plan: Continue statins. Last LDL 71 mg/dL and triglycerides 80 mg/dL. Coding Level of Care Code Est Pt Level 4 (84875) Complex EM visit Add On G2211 Diagnoses Atherosclerotic cardiovascular disease I25.10 Status post aorto-coronary artery bypass graft Z95.1 Essential hypertension I10 Other and unspecified hyperlipidemia E78.5 CPT Codes EKG - CPT: 80097-[id number], Complete ([id number])
== END 2024-08-29 08:44 | disposition home or self-care (01) ==
LOC: HO.HCS 07:51
PROVIDERS: PCP Internal Medicine; Visit Provider Internal Medicine
DX: I25.10 Atherosclerotic heart disease of native coronary artery without angina pectoris (principal); Z95.1 Presence of aortocoronary bypass graft; I10 Essential (primary) hypertension; E78.5 Hyperlipidemia, unspecified
CPT/HCPCS: 93010; 99214; G2211

== ENCOUNTER → 2024-08-29 07:51 | Outpatient (BNVA) | payer MEDICARE, SELFPAY | PROVIDERS: PCP Internal Medicine; Visit Provider Internal Medicine | DX: I25.10 Atherosclerotic heart disease of native coronary artery without angina pectoris (principal); Z95.1 Presence of aortocoronary bypass graft; I10 Essential (primary) hypertension; E78.5 Hyperlipidemia, unspecified; Z79.899 Other long term (current) drug therapy | CPT/HCPCS: 93005; 99212 ==

== ENCOUNTER 2024-11-01 08:45 | Outpatient (AMB) | payer MEDICARE, SELFPAY ==
--- NOTE | 2024-11-01 08:47 | MHC.PC.OV ---
Vital Signs 11/01/24 08:48 Height 6 ft Weight 233 lb BMI 31.6 BP 130/82 Blood Pressure Location Lt brachial Position Sitting Pulse 62 Pulse Source Pulse Oximeter Pulse Oximetry (%) 96 Oxygen Delivery Method Room Air Intake Visit Reasons: Transfer Care from Dr. Solitario 6mth f/u Medical Claims Representative Required: No Accompanied by: Self / Same As Patient Allergies atorvastatin (From [facility]) Allergy (Intermediate, Verified 11/01/24 09:34) RASH Medication List - Last Reconciled 11/01/24 by Harry Gagnon MD aspirin 81 mg PO DAILY clotrimazole 1% 1 appl topical BID 2 weeks clotrimazole-betamethasone 1-0.05 % 1 appl topical BID 2 weeks finasteride 5 mg PO DAILY hydrochlorothiazide 12.5 mg PO QAM ibuprofen 600 mg PO Q6H PRN lisinopril 20 mg PO DAILY metoprolol tartrate 50 mg PO BID multivit with min-folic acid 120 mcg (Centrum Adult 50 Plus Fresh-Fruity) 1 tab PO DAILY nifedipine ER 60 mg PO DAILY rosuvastatin 40 mg PO DAILY sildenafil 50 mg PO Tobacco use date assessed: 11/01/24 Fall risk assessment: 1 Fall in past year Last assessed Fall Risk: 11/01/24 Dental Screening Dental Screen Date: 11/01/24 Did you have a dental visit in the last 12 months?: No Did you have a dental problem in the last 6 months where you did not have access to dental care?: No Was dental information given to patient?: No HPI Transfer Care from Dr. Solitario 6mth f/u HPI Details Patient comes in today for his follow up visit - is transferring over from Dr. Solitario, who retired from the practice a few months ago Patient states that he feels okay but is frustrated by his inability to lose any significant amount of weight despite everything that he has tried - he continues to work out and exercise and walks on his treadmill everyday for about 30 to 45 minutes States that he is currently on a Golo diet and is down to his last box but he still has not lost much weight and does not think it is worth continuing after this He denies any headaches or dizziness Denies any chest pains, no SOB No nausea/vomiting, no abdominal pain No change in bowel habits noted He has no follow up labs done recently - labs were last done in April 2024 [facility] Medical History (Updated 11/01/24 @ 10:10 by Harry Gagnon MD) Obesity (BMI 30-39.9) Benign prostatic hyperplasia Mixed hyperlipidemia Basal cell carcinoma Renal cancer Prostate cancer Anxiety Other and unspecified hyperlipidemia Obesity Essential hypertension Atherosclerotic cardiovascular disease Surgical History History of umbilical hernia repair (~09/28/22) History of axillary surgery Hx of prostate biopsy History of meniscectomy of left knee History of right inguinal hernia repair History of left nephrectomy History of bilateral carpal tunnel release History of coronary artery bypass graft Family History Father No problems noted. Mother No problems noted. Social History Household Members Other:: brother Housing: House Are you a primary child care centre manager to a significant other at home: No Do you presently have visiting nurse or other home services: No Alcohol intake: current Alcohol intake frequency: 3 or more drinks per day Alcohol type: beer Patient Tobacco Use Status: Former Tobacco user Tobacco use type: Cigarette Years Smoked: 40 e-Cigarette/Vaping Use: Never Used Second Hand Smoke Exposure: No Advance Directives Date on File: 09/29/22 service: No Current occupational status: retired Cognitive needs: No Hearing needs: No Vision needs: Yes (glasses) Questionnaire PHQ-9 Over the last 2 weeks, how often have you been bothered by any of the following problems? 1. Little interest or pleasure in doing things: nearly every day 2. Feeling down, depressed, or hopeless: not at all 3. Trouble falling or staying asleep, or sleeping too much: not at all 4. Feeling tired or having little energy: not at all 5. Poor appetite or overeating: not at all 6. Feeling bad about yourself - or that you are a failure or have let yourself or your family down: not at all 7. Trouble concentrating on things, such as reading the newspaper or watching television: not at all 8. Moving or speaking so slowly that other people could have noticed. Or the opposite - being so fidgety or restless that you have been moving around a lot more than usual: not at all 9. Thoughts that you would be better off or of hurting yourself in some way: not at all Total score: 3 Depression Screening Interpretation: Positive Depression Screening Follow-up: Follow-up Visit Requested Depression Screening Done: Yes 48873 - PHQ-9 Billing: Yes Source: Developed by Drs. Song Tan, Thania Rivers, Nacho Aguirre and colleagues, with an educational jackie from [employer] Thrive Questionnaire Date Thrive assessed: 11/01/24 I am a: Patient What is your living situation today?: I have a steady place to live Within the past 12 months, did the food you bought not last and you didn't have the money to get more?: Never true Within the past 12 months, did you worry whether your food would run out before you got money to buy more?: Never true Do you have trouble paying for medicines?: No Do you have trouble getting transportation to medical appointments?: No Do you have trouble paying your heating and electricity bill?: No Do you have trouble taking care of your child, family member or friend?: No Do you have trouble with day-to-day activities such as bathing, preparing meals, shopping, managing finances, etc.?: No Are you currently unemployed and looking for a job?: No Are you interested in more education?: No Please select the resources that you would like help with: None Currently or been in a relationship where the following occur: No concerns reported THRIVE Score: 0 AUDIT C Alcohol Use Questionnaire (AUDIT-C) 1. How often do you have a drink containing alcohol?: 4 or more times a week 2. How many drinks containing alcohol do you have on a typical day when you are drinking?: 3 or 4 3. How often do you have six or more drinks on one occasion?: Monthly Total Score: 7 Score Reviewed/Action Taken: Yes KURTIS-7 AMB Questionnaire KURTIS-7 Date KURTIS - 7 assessed: 11/01/24 Feeling nervous, anxious, or on edge: 0 = Not at all Not being able to stop or control worryin = Not at all Worrying too much about different things: 0 = Not at all Trouble relaxin = Not at all Being so restless that it is hard to sit still: 0 = Not at all Becoming easily annoyed or irritable: 0 = Not at all Feeling afraid as if something awful might happen: 0 = Not at all Total KURTIS-7 score (0-4 normal; 5-9 mild; 10-14 moderate; 15-21 severe): 0 Source: Developed by Drs. Song Tan, Thania Rivers, Nacho Aguirre and colleagues, with an educational jackie from [employer] Review of Systems Const Denies chills, Denies fatigue, Denies fever(s) and Denies headache(s) ENT Denies dysphagia, Denies dizziness, Denies otalgia, Denies headache(s), Denies neck pain, Denies odynophagia and Denies sore throat Card Denies chest pain, Denies palpitations and Denies dyspnea Resp Denies chest congestion, Denies cough and Denies dyspnea GI Denies abdominal pain, Denies constipation, Denies dysphagia, Denies heartburn, Denies diarrhea, Denies nausea, Denies odynophagia and Denies vomiting Denies difficulty urinating, Denies dysuria, Denies nocturia and Denies urinary frequency Musc Denies back pain and Denies neck pain Skin/Breast Denies rash Neuro Denies dizziness and Denies headache(s) Endo Denies fatigue and Denies palpitations Physical exam (Primary Care) Vital Signs: Last Vital Signs Pulse 62 11/01/24 08:48 BP 130/82 11/01/24 08:48 Pulse Ox 96 11/01/24 08:48 Oxygen Delivery Method Room Air 11/01/24 08:48 BMI result Body Mass Index 31.6 Tobacco/Smoking Status: Tobacco use Status Tobacco use date assessed 11/01/24 11/01/24 08:56 Patient Tobacco Use Status Former Tobacco user 11/01/24 08:56 Tobacco use type Cigarette 11/01/24 08:56 e-Cigarette/Vaping Use Never Used 11/01/24 08:56 PHQ-9: PHQ-9 Score PHQ-9: Total score 3 11/01/24 08:56 Depression Screening Interpretation: Positive Depression Screening Follow-up: Follow-up Visit Requested Thrive Assessment: Date of Thrive Assessment Date Thrive assessed 11/01/24 11/01/24 08:56 Currently or been in a relationship where the following occur: No concerns reported Const General: no acute distress and alert HENMT Ears: TM's normal bilaterally and EAC's normal Throat: Yes posterior oropharynx normal and Yes tonsils normal (no TP congestion) Neck Neck: Yes supple and No lymphadenopathy Thyroid: Thyroid normal Resp Auscultation: clear to auscultation bilaterally, no rales and no wheezes Cardio Rate: regular rate Rhythm: regular rhythm Heart sounds: no murmurs GI Palpation (GI): Soft to palpation and nontender Auscultation: normal bowel sounds General: Yes no CVA tenderness Back/Spine/Pelvis Back: no CVA tenderness Thoracic/Lumbar Spine: No lumbar spinal tenderness Skin Rashes: no rashes Extrem General: Yes no clubbing, cyanosis or edema Coding Level of Care Code Est Pt Level 4 (35771) Diagnoses Essential hypertension I10 Mixed hyperlipidemia E78.2 Atherosclerotic cardiovascular disease I25.10 Benign prostatic hyperplasia without lower urinary tract symptoms N40.0 Lower urinary tract symptom presence: symptoms absent Obesity (BMI 30-39.9) E66.9 Additional Codes PHQ-9 - 55818 - PHQ-9 Billing: Yes ([id number]) Assessment & Plan Assessment & Plan (1) Essential hypertension: Code(s): I10 - Essential (primary) hypertension Category: Medical Plan: Reinforced low sodium diet - goal is systolic BP of at least 130 to 140 mm or less Continue Lisinopril 20 mg QD, Nifedipine ER 60 mg QD, HCTZ 12.5 mg QD and Metoprolol 50 mg BID Patient is reminded to continue monitoring his blood pressure regularly (2) Mixed hyperlipidemia: Code(s): E78.2 - Mixed hyperlipidemia Category: Medical Plan: He has no follow up labs done since April 2024 - his cholesterol numbers in April 2024 were all at or close to goal Reinforced low cholesterol diet Continue Rosuvastatin 40 mg QD Will have patient recheck his labs and fasting lipids in 4 months for follow up (3) Atherosclerotic cardiovascular disease: Code(s): I25.10 - Atherosclerotic heart disease of [place] coronary artery without angina pectoris Category: Medical Plan: S/P CABG x 2 about 20 years ago (~2003) Continue Aspirin 81 mg QD and Metoprolol 50 mg BID Follow up with cardiology as scheduled (4) Benign prostatic hyperplasia: Code(s): N40.0 - Benign prostatic hyperplasia without lower urinary tract symptoms Category: Medical Qualifiers: Lower urinary tract symptom presence: symptoms absent Qualified Code(s): N40.0 - Benign prostatic hyperplasia without lower urinary tract symptoms Plan: Continue Finasteride 5 mg QD Follow up with urology as scheduled (5) Obesity (BMI 30-39.9): Code(s): E66.9 - Obesity, unspecified Category: Medical Plan: Reinforced diet/exercise as tolerated/lose weight Plan Follow up in 4 months Orders: Orders Complete Blood Count Auto Diff 4 Months D64.9 - Anemia, unspecified Vitamin B12 and Folate 4 Months E53.8 - Deficiency of other specified B group vitamins Vitamin D 25-OH Total 4 Months E55.9 - Vitamin D deficiency, unspecified Lipid Panel 4 Months E78.00 - Pure hypercholesterolemia, unspecified Comprehensive [place]. Panel Fast 4 Months E78.00 - Pure hypercholesterolemia, unspecified TSH reflex Free T4 4 Months E78.00 - Pure hypercholesterolemia, unspecified UA CC w/rflx Micro + Cult 4 Months R30.0 - Dysuria
[2024-11-01 08:48] VITALS: BP 130/82; PULSE 62; O2SAT 96; BMI 31.6
--- OUTSIDE RECORDS SUMMARY | 2024-11-01 09:15 | XMS_ITS | Clinical Summary ---
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 Name Role Phone Margarito Solitario MD Primary Care Provider [phone] Allergies Active Allergy Reactions Criticality Noted Date [...] tablet by mouth once daily 90 tablet 09/10/2024 Active Active Problems Problem Noted Date Diagnosed Date Encounter for other administrative examination 0 06/08/2023 Primary malignant neoplasm of left kidney 2020 Chronic kidney disease stage 3 09/18/2020 Absent kidney 09/18/2020 Essential hypertension 09/18/2020 Encounters Date Type Department Care Team Description 09/09/2024 Refill [facility] [address] [place] [address] Celestino Plasencia [...] Visit [facility] [address] [place] [phone] Celestino Plasencia MD [address] [facility] [address] [place] [address] Health Maintenance Due Date Last Done Comments Pneumococcal Vaccine: 50+ Ye ars (1 of 2 - PCV) 12/04/1964 Influenza Vaccine (#1) 2024 Hepatitis B Vaccine Aged Out No longe r eligible based on patient's age to complete this topic Insurance [facility] Medicare [facility] Medicare Care Teams 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
== END 2024-11-01 09:45 | disposition home or self-care (01) ==
LOC: HO.HMCH 08:45
PROVIDERS: PCP Internal Medicine; Visit Provider Internal Medicine
DX: I10 Essential (primary) hypertension (principal); E78.2 Mixed hyperlipidemia; E66.9 Obesity, unspecified; Z68.31 Body mass index [BMI] 31.0-31.9, adult; I25.10 Atherosclerotic heart disease of native coronary artery without angina pectoris; N40.0 Benign prostatic hyperplasia without lower urinary tract symptoms

== ENCOUNTER → 2024-11-01 08:45 | Outpatient (BNVA) | payer MEDICARE, SELFPAY | PROVIDERS: PCP Internal Medicine; Visit Provider Internal Medicine | DX: I10 Essential (primary) hypertension (principal); E78.2 Mixed hyperlipidemia; I25.10 Atherosclerotic heart disease of native coronary artery without angina pectoris; N40.0 Benign prostatic hyperplasia without lower urinary tract symptoms; E66.9 Obesity, unspecified; D64.9 Anemia, unspecified; E53.8 Deficiency of other specified B group vitamins; E55.9 Vitamin D deficiency, unspecified; E78.00 Pure hypercholesterolemia, unspecified; R30.0 Dysuria; Z68.31 Body mass index [BMI] 31.0-31.9, adult | CPT/HCPCS: 96127; 99212 ==